=== PATIENT | female | born 1930 | race Caucasian/White ===

== ENCOUNTER 2016-07-31 23:39 | Inpatient (IN) | payer OTHER ==
[~2016-07-31] VITALS: Ht 154.9 cm; Wt 75.3 kg
[~2016-07-31 23:39] MED LIST: ATOR20TA38 PO; CARV6.2579 PO; FERR325C PO; HYDR-3498 PO; HYDR-3670 PO; MELO-110 PO
[2016-07-31 23:58] LABS: URINE BLOOD (Dip) POC Negative (NEGATIVE)
[2016-08-01] VITALS (13 sets, daily range): BP systolic 136–173; BP diastolic 63–78; PULSE 64–86; RESP 18–22; Ht 154.9 cm; Wt 75.3 kg
--- NOTE | 2016-08-01 00:14 | ERA ---
ER Documentation Chief Complaint Date/Time DATE: 08/01/16 TIME: 00:13 Chief Complaint N/V that started this morning. HPI The patient is a 86-year-old female, presenting to the ER because of abdominal pain, nausea, vomiting that began about 10 AM today. She has similar symptoms previously but not with this intensity. She denies fever, chills, neck pain, chest pain, dyspnea. She complains of constipation. She does not smoke or drink Past medical history: Dyslipidemia, anemia, hypertension Past surgical history cholecystectomy, cataract ROS All systems reviewed and are negative except as per history of present illness. Medications Home Meds Active Scripts Hydralazine Hcl* (Hydralazine Hcl*) 10 Mg Tablet, 10 MG PO TID for 30 Days, # 120 TAB Prov:WILTON ARRIAGA 10/24/15 Hydrocodone Bit-Acetaminophen (Hydrocodone Bit-APAP) 5-325MG Tablet, 1 TAB PO Q4H Y for PAIN LEVEL 4-7 for 30 Days, TAB Prov:WILTON ARRIAGA 10/24/15 Carvedilol* (Carvedilol*) 6.25 Mg Tablet, 6.25 MG PO BID for 30 Days, TAB Prov:WILTON ARRIAGA 10/24/15 Meloxicam* (Mobic*) 15 Mg Tablet, 15 MG PO DAILY for 10 Days, #30 TAB Prov:WILTON ARRIAGA 10/24/15 Reported Medications Atorvastatin Calcium* (Atorvastatin Calcium*) 20 Mg Tablet, 20 MG PO QHS, #30 TAB 10/20/15 Ferrous Sulfate (Iron) 325 Mg Capsr, 325 MG PO 10/20/15 Allergies Allergies: Coded Allergies: No Known Allergy (Unverified , 10/19/15) PMhx/Soc History of Surgery: Yes (Cholecystectomy, cataract surgery) Anesthesia Reaction: No Hx Neurological Disorder: No Hx Respiratory Disorders: No Hx Cardiac Disorders: Yes (HTN) Hx Psychiatric Problems: No Hx Miscellaneous Medical Probl: No Hx Alcohol Use: No Hx Substance Use: No Hx Tobacco Use: No Physical Exam Vitals Vital Signs Date Time Temp Pulse Resp B/P Pulse Ox O2 Delivery O2 Flow Rate FiO2 07/31/16 23:40 97.8 82 20 189/84 96 Physical Exam Const: No acute distress. Head: Atraumatic. Eyes: Normal Conjunctiva. ENT: Normal External Ears, Nose and Mouth. Neck: Full range of motion. No meningismus. Resp: Clear to auscultation bilaterally. Cardio: Regular rate and rhythm, no murmurs. Abd: Soft, non distended, normal bowel sounds, diffuse and moderate abdominal tenderness, more tenderness at the left lower quadrant Skin: No petechiae or rashes. Back: No midline or flank tenderness. Ext: No cyanosis, or edema. Neur: Awake and alert. No focal deficit Psych: Normal Mood and Affect. Result Diagram: 08/01/16 0022 08/01/16 0022 Results 24 hrs Laboratory Tests Test 08/01/16 00:00 08/01/16 00:22 Bedside Urine pH (LAB) 7.5 Bedside Urine Protein (LAB) Negative Bedside Urine Glucose (UA) Negative Bedside Urine Ketones (LAB) Negative Bedside Urine Blood Negative Bedside Urine Nitrite (LAB) Negative Bedside Urine Leukocyte Esterase (L Negative White Blood Count 6.110^3/ul Red Blood Count 3.7010^6/ul Hemoglobin 11.2g/dl Hematocrit 31.8% Mean Corpuscular Volume 85.9fl Mean Corpuscular Hemoglobin 30.3pg Mean Corpuscular Hemoglobin Concent 35.2g/dl Red Cell Distribution Width 11.8% Platelet Count 55742^3/UL Mean Platelet Volume 9.7fl Neutrophils % 58.5% Lymphocytes % 33.5% Monocytes % 6.2% Eosinophils % 1.0% Basophils % 0.3% Nucleated Red Blood Cells % 0.0/100WBC Neutrophils # 3.610^3/ul Lymphocytes # 2.010^3/ul Monocytes # 0.410^3/ul Eosinophils # 0.110^3/ul Basophils # 0.010^3/ul Nucleated Red Blood Cells # 0.010^3/ul Sodium Level 120mmol/L Potassium Level 4.5mmol/L Chloride Level 87mmol/L Carbon Dioxide Level 22mmol/L Anion Gap 16 Blood Urea Nitrogen 14mg/dl Creatinine 0.93mg/dl Glucose Level 139mg/dl Calcium Level 9.0mg/dl Total Bilirubin 0.3mg/dl Direct Bilirubin 0.00mg/dl Indirect Bilirubin 0.3mg/dl Aspartate Amino Transf (AST/SGOT) 31IU/L Alanine Aminotransferase (ALT/SGPT) 30IU/L Alkaline Phosphatase 104IU/L Total Protein 7.7g/dl Albumin 4.1g/dl Globulin 3.60g/dl Albumin/Globulin Ratio 1.13 Lipase 89U/L Current Medications Medications (Trade) Dose Ordered Sig/Barbara Route PRN Reason Start Time Stop Time Status Last Admin Dose Admin Morphine Sulfate (morphine) 2 mg ONCE STAT IV 08/01/16 00:21 08/01/16 00:23 DC 08/01/16 00:35 Ondansetron HCl (Zofran Inj) 4 mg ONCE STAT IV 08/01/16 00:21 08/01/16 00:23 DC 08/01/16 00:35 Ondansetron HCl (Zofran Inj) 4 mg ONCE STAT IV 08/01/16 01:38 08/01/16 01:45 DC 08/01/16 01:50 Procedures/MDM [place] [id number] Radiology Main Line: [phone] DIAGNOSTIC IMAGING REPORT Patient: YUKI LAGUNA : 1930 Age: 86 Sex: F MR #: [id number] DOS: 08/01/16 0021 Ordering MD: MICHEL NIEVES MD Location: E/R Room/Bed: PROCEDURE: CT Abdomen and Pelvis without contrast. CLINICAL INDICATION: Abdominal pain. TECHNIQUE: A CT scan of the abdomen and pelvis was performed without intravenous contrast. Coronal and sagittal reformatted images were generated. Images were reviewed on a high-resolution PACS workstation. CTDIvol: 19.34 mGy. DLP: 1034.64 mGy-cm. One or more of the following dose reduction techniques were used: - Automated exposure control. - Adjustment of the mA and/or kV according to patient size. - Use of iterative reconstruction technique. COMPARISON: 10/19/2015 FINDINGS: The lung bases are clear. Evaluation of the abdominal and pelvic viscera is limited by the lack of oral and intravenous contrast. The liver is unremarkable. The patient is status post cholecystectomy. There is extrahepatic biliary ductal dilatation (CBD: 12 mm), probably due to age and absence of the gallbladder. There are calcified granulomas in the spleen. No pancreatic lesion is identified and there is no pancreatic ductal dilatation. The adrenal glands are unremarkable. The kidneys are normal in size. There is no perinephric fat stranding. No hydronephrosis is seen. No urinary stone is identified. The small and large bowel are normal in caliber. There is mild to moderate sigmoid colon diverticulosis. There is wall thickening and pericolonic inflammation along the mid sigmoid colon, consistent with diverticulitis. No associated pericolonic fluid collection or pneumoperitoneum is identified. The appendix is normal. The urinary bladder is unremarkable. The pelvic organs are within normal limits. No lymphadenopathy is identified. There is no ascites. There are mild arterial calcifications. There are calcified injection granulomas in the subcutaneous fat of both buttocks. No suspicious osseous lesion is idenitified. There is grade 1 degenerative L4 and L5 anterolisthesis. IMPRESSION: 1. Diverticulitis along the mid sigmoid colon. No pneumoperitoneum or abscess is identified. 2. Mild to moderate sigmoid colon diverticulosis. 3. Status post cholecystectomy. 4. Mild atherosclerotic arterial calcifications. 5. Grade 1 degenerative L4 and L5 anterolisthesis. RPTAT: HTAR .Andrew Bartlett MD, Date Time Electronically viewed and signed by .Andrew Bartlett MD, MD on 08/01/2016 01:18 .R/ CC: MICHEL NIEVES MD MEDICAL MAKING DECISION: The patient is a 86-year-old female, presenting with acute diverticulitis, acute hyponatremia. She was treated with morphine 2 mg IV for pain, Zofran 4 mg IV 2 for nausea, Cipro IV and Flagyl IV for acute diverticulitis The differential diagnoses considered include but are not limited to cholelithiasis, cholecystitis, cystitis, pancreatitis, hepatitis, gastritis, peptic ulcer disease, gastric ulcer, appendicitis, diverticulitis, cholangitis, choledocholithiasis, partial small bowel obstruction. Consultation: I discussed the patient with the on-call general surgeon Dr. Taylor at 1:50 AM, who was made aware of the lab, the patient treatment and condition. He accepted the consult Departure Diagnosis: Primary Impression: Diverticulitis Additional Impressions: Hyponatremia Anemia Condition: Stable Comments I discussed the findings with the patient. I discussed the patient with her physician Dr. Smith who was made aware of the lab, the treatment, the patient condition. The patient is admitted to telemetry at 2 am MICHEL NIEVES MD August 01, 2016 00:14
[2016-08-01] MEDS ORDERED: ONDANSETRON 4 MG INJ IV STA ×2 (00:21→01:38)
[2016-08-01] MEDS ORDERED: morphine 2 MG INJ IV STA (00:21)
[2016-08-01 01:09] LABS: ADD SCAN DIFF NO
[2016-08-01 01:12] LABS: BASOPHILS % 0.3 % (0.0-2.0); EOSINOPHILS # 0.1 10^3/ul (0.0-0.5); HEMATOCRIT 31.8 % (37.0-47.0); HEMOGLOBIN 11.2 g/dl (12.0-16.0); LYMPHOCYTES % 33.5 % (15.0-51.0); MEAN CORPUSCULAR HEMOGLOBIN 30.3 pg (29.0-33.0); MEAN CORPUSCULAR HGB CONC 35.2 g/dl (32.0-37.0); MEAN CORPUSCULAR VOLUME 85.9 fl (82.0-101.0); MEAN PLATELET VOLUME 9.7 fl (7.4-10.4); MONOCYTE # 0.4 10^3/ul (0.3-0.9); MONOCYTES % 6.2 % (0.0-11.0); NEUTROPHIL # 3.6 10^3/ul (1.6-7.5); NEUTROPHILS % 58.5 % (39.0-77.0); PLATELET COUNT 238 10^3/UL (140-415); RED CELL DISTRIBUTION WIDTH 11.8 % (11.5-14.5); WHITE BLOOD COUNT 6.1 10^3/ul (4.8-10.8)
--- NOTE | 2016-08-01 01:19 | RADRPT ---
PROCEDURE: CT Abdomen and Pelvis without contrast. CLINICAL INDICATION: Abdominal pain. TECHNIQUE: A CT scan of the abdomen and pelvis was performed without intravenous contrast. Montilla l and sagittal reformatted images were generated. Images were reviewed on a high-resolution PACS wor kstation. CTDIvol: 19.34 mGy. DLP: 1034.64 mGy-cm. One or more of the following dose reduction techniques were used: - Automated exposure control. - Adjustment of the mA and/or kV according to patient size. - Use of iterative reconstruction technique. COMPARISON: 10/19/2015 FINDINGS: The lung bases are clear. Evaluation of the abdominal and pelvic viscera is limited by the lack of oral and intravenous contra st. The liver is unremarkable. The patient is status post cholecystectomy. There is extrahepatic biliar y ductal dilatation (CBD: 12 mm), probably due to age and absence of the gallbladder. There are manjula cified granulomas in the spleen. No pancreatic lesion is identified and there is no pancreatic ducta l dilatation. The adrenal glands are unremarkable. The kidneys are normal in size. There is no perinephric fat stranding. No hydronephrosis is seen. No urinary stone is identified. The small and large bowel are normal in caliber. There is mild to moderate sigmoid colon diverticulo sis. There is wall thickening and pericolonic inflammation along the mid sigmoid colon, consistent w ith diverticulitis. No associated pericolonic fluid collection or pneumoperitoneum is identified. T he appendix is normal. The urinary bladder is unremarkable. The pelvic organs are within normal limits. No lymphadenopathy is identified. There is no ascites. There are mild arterial calcifications. There are calcified injection granulomas in the subcutaneous fat of both buttocks. No suspicious osseous lesion is idenitified. There is grade 1 degenerative L4 and L5 anterolisthesis . IMPRESSION: 1. Diverticulitis along the mid sigmoid colon. No pneumoperitoneum or abscess is identified. 2. Mild to moderate sigmoid colon diverticulosis. 3. Status post cholecystectomy. 4. Mild atherosclerotic arterial calcifications. 5. Grade 1 degenerative L4 and L5 anterolisthesis. RPTAT: HTAR .Andrew Bartlett MD, MD Date Time Electronically viewed and signed by .Andrew Bartlett MD, MD on 08/01/2016 01:18 .R/
[2016-08-01 01:42] LABS: ALBUMIN 4.1 g/dl (3.3-4.9)
[2016-08-01 01:43] LABS: ALBUMIN/GLOBULIN RATIO 1.13; BILIRUBIN,INDIRECT 0.3 mg/dl (0-1.1); BILIRUBIN,TOTAL 0.3 mg/dl (0.2-1.3); CREATININE 0.93 mg/dl (0.44-1.00); POTASSIUM 4.5 mmol/L (3.5-5.1); TOTAL PROTEIN 7.7 g/dl (6.1-8.1)
[2016-08-01] MEDS ORDERED: CIPROFLOXACIN 400MG/D5W 200 ML IVPB ONE (02:00)
[2016-08-01] MEDS ORDERED: metroNIDAZOLE 500 MG/NS (PMX) 100 ML IVPB ONE (02:00)
[2016-08-01] MEDS ORDERED: METOCLOPRAMIDE 10 MG INJ IV ONE (02:30)
[2016-08-01] MEDS ORDERED: morphine SULFATE/PF (10 MG/10 ML) INJ IV PRN (03:30)
[2016-08-01] MEDS: SOD CHLORIDE 0.9% 1,000 ML IV SCH ×3 (03:52→23:30)
[2016-08-01] MEDS ORDERED: morphine 2 MG INJ IV PRN (04:00)
[2016-08-01] MEDS: metroNIDAZOLE 500 MG/NS (PMX) 100 ML IVPB SCH ×3 (05:46→21:23)
[2016-08-01 06:08] LABS: ADD SCAN DIFF NO
[2016-08-01 06:37] LABS: BASOPHILS % 0.4 % (0.0-2.0); EOSINOPHILS % 0.2 % (0.0-7.0); HEMATOCRIT 29.8 % (37.0-47.0); HEMOGLOBIN 10.7 g/dl (12.0-16.0); LYMPHOCYTES # 1.6 10^3/ul (0.8-2.9); LYMPHOCYTES % 27.9 % (15.0-51.0); MEAN CORPUSCULAR HEMOGLOBIN 30.4 pg (29.0-33.0); MEAN CORPUSCULAR HGB CONC 35.9 g/dl (32.0-37.0); MEAN CORPUSCULAR VOLUME 84.7 fl (82.0-101.0); MEAN PLATELET VOLUME 9.4 fl (7.4-10.4); MONOCYTE # 0.4 10^3/ul (0.3-0.9); MONOCYTES % 7.5 % (0.0-11.0); NEUTROPHIL # 3.6 10^3/ul (1.6-7.5); NEUTROPHILS % 63.5 % (39.0-77.0); PLATELET COUNT 207 10^3/UL (140-415); RED BLOOD COUNT 3.52 10^6/ul (4.20-5.40); RED CELL DISTRIBUTION WIDTH 11.6 % (11.5-14.5); WHITE BLOOD COUNT 5.6 10^3/ul (4.8-10.8)
[2016-08-01 06:38] LABS: CALCIUM 8.5 mg/dl (8.4-10.2); CREATININE 0.79 mg/dl (0.44-1.00); POTASSIUM 4.3 mmol/L (3.5-5.1)
--- NOTE | 2016-08-01 12:44 | HP ---
Date/Time of Note Date/Time of Note DATE: 08/01/16 TIME: 12:42 Assessment/Plan VTE Prophylaxis VTE Prophylaxis Intervention: other Lines/Catheters [facility] Per[facility] IV Assessment/Plan Chief Complaint/Hosp Course 1) diverticulitis - IV flagyl - surgery consult, await input 2) hypertension - continue home meds - monitor blood pressure 3) hypercholesterolemia - continue meds Problems: HPI/ROS Admit Date/Time Admit Date/Time August 01, 2016 at 01:55 Hx of Present Illness Patient with hypertension and hypercholesterolemia comes in with abdominal pain , nausea and vomiting. Patient was evaluated in the emergency room and found to have diverticulitis on abdominal CT. Patient is admitted and placed on intravenous antibiotics. Surgery was also called by the emergency room and they will evaluate the patient for possibly further treatment as needed. PMH/Family/Social Past Medical History Medical History: high cholesterol, hypertension Past Surgical History Past Surgical Hx: other Social History Smoking Status: Never smoker Exam/Review of Systems Vital Signs Vitals Vital Signs Date Time Temp Pulse Resp B/P Pulse Ox O2 Delivery O2 Flow Rate FiO2 08/01/16 12:04 80 08/01/16 11:44 97.9 18 173/78 97 08/01/16 03:57 Room Air Intake and Output 07/31/16 07/31/16 08/01/16 15:00 23:00 07:00 Output Total 10 ml Balance -10 ml Exam Constitutional: well developed Head: atraumatic, normocephalic Neck: supple Respiratory: clear to auscultation Cardiovascular: regular rate and rhythm Gastrointestinal: tender Extremities: normal pulses Labs Result Diagram: 08/01/16 0550 08/01/16 0550 Medications Medications Current Medications Sodium Chloride (NS) 1,000 ml @ 100 mls/hr Q10H IV Last administered on 03:52; Admin Dose 100 MLS/HR; Start 08/01/16 at 03:30 Ondansetron HCl 4 mg 4 mg Q6H PRN IV NAUSEA AND/OR VOMITING; Start 08/01/16 at 03:30 Metronidazole (Flagyl 500 Mg (Pmx)) 100 ml @ 100 mls/hr Q8 IVPB Last administered on 08/01/16 05:46; Admin Dose 100 MLS/HR; Start 08/01/16 at 06:00 Morphine Sulfate (morphine) 2 mg Q4H PRN IV PAIN Last administered on t 08:00; Admin Dose 2 MG; Start 08/01/16 at 04:00 EDEN LYLES August 01, 2016 12:44
[2016-08-01] MEDS: LORAZEPAM 2 MG INJ IV PRN (13:06)
--- NOTE | 2016-08-01 20:37 | CONS ---
DATE OF ADMISSION: 08/01/2016 DATE OF CONSULTATION: 08/01/2016 TYPE OF CONSULTATION: Surgical. REFERRING PHYSICIAN: Dr. Elmo Nieves CHIEF COMPLAINT: 1. Abdominal pain. 2. BMI of 31. 3. Sigmoid diverticulitis, uncomplicated. HISTORY OF PRESENT ILLNESS: Rhea Dumont is an 86-year-old female with multiple comorbidities who p resents with abdominal pain on the left abdomen associated with nausea and vomiting since yesterday. She denies any fevers, chills, chest pain; however, had some shortness of breath. No cough. No s eizure. No blood per mouth or rectum. No dysuria. No trauma or sick contacts. No previous histor y of the same. In the emergency room, she is found to be afebrile with stable and normal vitals, except elevated bl ood pressure. CBC is mostly normal except anemia. Chemistry has some abnormalities of sodium with hyponatremia. CT scan of the abdomen shows sigmoid diverticulitis without complication. The patien t is admitted, placed on antibiotics, and surgical consult was obtained for further evaluation and t reatment. PAST MEDICAL HISTORY: 1. BMI of 31. 2. Diverticulosis with acute diverticulitis. 3. Anemia. 4. Significant hyponatremia. 5. Dyslipidemia. 6. Hypertension. PAST SURGICAL HISTORY: 1. Cataracts. 2. Cholecystectomy. ALLERGIES: PER MEDICAL RECORD. SOCIAL HISTORY: No current alcohol, drugs, or tobacco. FAMILY HISTORY: Noncontributory. REVIEW OF SYSTEMS: A 12-point review of systems negative unless addressed in the HPI. PHYSICAL EXAMINATION: VITAL SIGNS: Temperature is 98.8, pulse 65, blood pressure 167/67, satting 98% on 2 liters. GENERAL: Obese. No acute distress, comfortable, pleasant. HEENT: Pupils equal, reactive. No scleral icterus. Mucous membranes are moist. NECK: Supple. No JVD. PULMONARY: Normal respiratory effort. No wheezing. CARDIAC: S1, S2 present. ABDOMEN: Soft, obese, currently nontender. No rebound, no guarding, not rigid. EXTREMITIES: No edema. VASCULAR: Cap refill less than 2 seconds. NEUROLOGIC: Alert, oriented. Moves all 4 extremities grossly. LABORATORY AND RADIOGRAPHIC: As per chart and HPI. ASSESSMENT AND PLAN: Rhea Dumont is an 86-year-old female with multiple significant comorbidities. 1. Abdominal pain with CT findings that are suggestive of acute noncomplicated diverticulitis. Con tinue antibiotics and supportive care. No surgical intervention required at this time. 2. Dyspnea, probably secondary to abdominal distention; however, need to rule out other sources. W ill defer to primary for further workup and treatment. However, she is saturating well. 3. Morbid obesity. Encourage nutritional optimization and exercise to lose weight and improve her overall health status. 4. Anemia without evidence of acute blood loss. Continue monitoring and she will eventually benefi t from gastrointestinal workup to rule out gastrointestinal sources. In the meantime, will defer to primary team for further workup. 5. Hypertension. Continue nutrition and medication control and encourage weight loss. 6. Significant hyponatremia. Please correct with judicious fluid management. Thank you very much for consulting me in this patient's care. Dictated By: DANIELLA MCNULTY/NTS Conf#: [id number] DID#: [id number] CC: EDEN LYLES MD; ELMO NIEVES MD;*EndCC*
[2016-08-01] MEDS: ATORVASTATIN 20 MG TAB PO SCH (21:22)
[2016-08-01] MEDS: ENOXAPARIN 30 MG/0.3 ML SYG SC SCH (21:25)
[2016-08-02] VITALS (11 sets, daily range): BP systolic 125–144; BP diastolic 52–78; PULSE 59–69; RESP 18–20
[2016-08-02] MEDS: metroNIDAZOLE 500 MG/NS (PMX) 100 ML IVPB SCH ×3 (05:32→23:19)
[2016-08-02 06:47] LABS: ADD SCAN DIFF NO
[2016-08-02 06:51] LABS: BASOPHILS % 0.4 % (0.0-2.0); EOSINOPHILS # 0.1 10^3/ul (0.0-0.5); EOSINOPHILS % 2.2 % (0.0-7.0); HEMOGLOBIN 10.4 g/dl (12.0-16.0); LYMPHOCYTES % 37.4 % (15.0-51.0); MEAN CORPUSCULAR HGB CONC 34.7 g/dl (32.0-37.0); MEAN CORPUSCULAR VOLUME 86.5 fl (82.0-101.0); MEAN PLATELET VOLUME 9.1 fl (7.4-10.4); MONOCYTE # 0.7 10^3/ul (0.3-0.9); MONOCYTES % 12.5 % (0.0-11.0); NEUTROPHIL # 2.5 10^3/ul (1.6-7.5); NEUTROPHILS % 47.3 % (39.0-77.0); PLATELET COUNT 200 10^3/UL (140-415); RED BLOOD COUNT 3.47 10^6/ul (4.20-5.40); RED CELL DISTRIBUTION WIDTH 12.2 % (11.5-14.5); WHITE BLOOD COUNT 5.4 10^3/ul (4.8-10.8)
[2016-08-02 07:18] LABS: POTASSIUM 4.1 mmol/L (3.5-5.1)
[2016-08-02 07:20] LABS: CREATININE 0.82 mg/dl (0.44-1.00)
[2016-08-02 07:21] LABS: CALCIUM 8.6 mg/dl (8.4-10.2)
--- NOTE | 2016-08-02 08:57 | PN ---
Date/Time of Note Date/Time of Note DATE: 08/02/16 TIME: 08:55 Assessment/Plan Lines/Catheters IV [facility] (from [facility]): Peripheral IV Assessment/Plan Chief Complaint/Hosp Course 1. Abdominal pain with CT findings that are suggestive of acute noncomplicated diverticulitis. Continue antibiotics and supportive care. No surgical intervention required at this time. 2. Dyspnea, probably secondary to abdominal distention. Improved 3. Morbid obesity. Encourage nutritional optimization and exercise to lose weight and improve her overall health status. 4. Anemia without evidence of acute blood loss. -eventual w/u 5. Hypertension. Continue nutrition and medication control and encourage weight loss. 6. Significant hyponatremia. Please correct with judicious fluid management. Improving Thank you Problems: Subjective 24 Hr Interval Summary Min LLQ pain. No f/c. No cp/sob. No cough. No sz. No rash. No dysuria. No visual or neuro changes. Exam/Review of Systems Vital Signs Vitals Vital Signs Date Time Temp Pulse Resp B/P Pulse Ox O2 Delivery O2 Flow Rate FiO2 08/10/16 07:16 98.3 76 18 130/60 96 08/08/16 20:05 Room Air Intake and Output 08/10/16 08/10/16 08/11/16 15:00 23:00 07:00 Intake Total 100 ml 1220 ml Balance 100 ml 1220 ml Exam Free Text/Dictation GENERAL: Obese. No acute distress, comfortable, pleasant. HEENT: Pupils equal, reactive. No scleral icterus. Mucous membranes are moist. NECK: Supple. No JVD. PULMONARY: Normal respiratory effort. No wheezing. CARDIAC: S1, S2 present. ABDOMEN: Soft, obese, nontender. No rebound, no guarding, not rigid. EXTREMITIES: No edema. VASCULAR: Cap refill less than 2 seconds. NEUROLOGIC: Alert, oriented. Moves all 4 extremities grossly. Results Result Diagram: 08/09/16 0515 08/10/16 0525 DANIELLA DURAN MD August 02, 2016 08:57
[2016-08-02] MEDS: MELOXICAM 15 MG TAB PO SCH (09:22)
[2016-08-02] MEDS: ENOXAPARIN 30 MG/0.3 ML SYG SC SCH (09:28)
--- NOTE | 2016-08-02 10:15 | PN ---
Date/Time of Note Date/Time of Note DATE: 08/02/16 TIME: 10:14 Assessment/Plan VTE Prophylaxis VTE Prophylaxis Intervention: other Lines/Catheters IV Catheter Type (from [facility]): Peripheral IV Assessment/Plan Chief Complaint/Hosp Course 1) diverticulitis - IV flagyl - appreciate surgery input 2) hypertension - continue home meds - monitor blood pressure 3) hypercholesterolemia - continue meds Problems: Subjective 24 Hr Interval Summary Free Text/Dictation Patient denies abdominal pain. Exam/Review of Systems Vital Signs Vitals Vital Signs Date Time Temp Pulse Resp B/P Pulse Ox O2 Delivery O2 Flow Rate FiO2 08/02/16 08:06 98.0 62 18 141/63 90 08/01/16 08:00 Nasal Cannula 2.0 Intake and Output 08/01/16 08/01/16 08/02/16 15:00 23:00 07:00 Intake Total 1950 ml 550 ml Balance 1950 ml 550 ml Exam Constitutional: well developed Head: atraumatic, normocephalic Neck: supple Respiratory: clear to auscultation Cardiovascular: regular rate and rhythm Gastrointestinal: non-tender, soft Extremities: normal pulses Results Result Diagram: 08/02/16 0625 08/02/16 0625 Results 24 hrs Laboratory Tests Test 08/02/16 06:25 White Blood Count 5.4 Red Blood Count 3.47 L Hemoglobin 10.4 L Hematocrit 30.0 L Mean Corpuscular Volume 86.5 Mean Corpuscular Hemoglobin 30.0 Mean Corpuscular Hemoglobin Concent 34.7 Red Cell Distribution Width 12.2 Platelet Count 200 Mean Platelet Volume 9.1 Neutrophils % 47.3 Lymphocytes % 37.4 Monocytes % 12.5 H Eosinophils % 2.2 Basophils % 0.4 Nucleated Red Blood Cells % 0.0 Neutrophils # 2.5 Lymphocytes # 2.0 Monocytes # 0.7 Eosinophils # 0.1 Basophils # 0.0 Nucleated Red Blood Cells # 0.0 Sodium Level 133 L Potassium Level 4.1 Chloride Level 108 # Carbon Dioxide Level 24 Anion Gap 5 #L Blood Urea Nitrogen 9 Creatinine 0.82 Glucose Level 101 # Calcium Level 8.6 Medications Medications Current Medications Sodium Chloride (NS) 1,000 ml @ 100 mls/hr Q10H IV Last administered on t 16:15; Admin Dose 100 MLS/HR; Start 5/28/17 at 03:30 Ondansetron HCl 4 mg 4 mg Q6H PRN IV NAUSEA AND/OR VOMITING; Start 08/01/16 at 03:30 Metronidazole (Flagyl 500 Mg (Pmx)) 100 ml @ 100 mls/hr Q8 IVPB Last administered on 08/02/16 05:32; Admin Dose 100 MLS/HR; Start 08/01/16 at 06:00 Morphine Sulfate (morphine) 2 mg Q4H PRN IV PAIN Last administered on 08:00; Admin Dose 2 MG; Start 08/01/16 at 04:00 Atorvastatin Calcium (Lipitor) 20 mg QHS PO Last administered on 08/01/16 21: 22; Admin Dose 20 MG; Start 08/01/16 at 21:00 Carvedilol (Coreg) 6.25 mg BID PO Last administered on 08/02/16 09:21; Admin Dose 6.25 MG; Start 08/01/16 at 21:00 Hydralazine HCl (Apresoline) 10 mg TID PO Last administered on 08/02/16 09:20 ; Admin Dose 10 MG; Start 08/01/16 at 13:00 Acetaminophen/ Hydrocodone Bitart (Catarina (5/325)) 1 tab Q4H PRN PO PAIN LEVEL 4 -7; Start 08/01/16 at 13:00 Meloxicam (Mobic) 15 mg DAILY PO Last administered on 08/02/16 09:22; Admin Dose 15 MG; Start 08/02/16 at 09:00 Enoxaparin Sodium (Lovenox) 30 mg BID SC Last administered on 08/02/16 09:28; Admin Dose 30 MG; Start 08/01/16 at 21:00 Lorazepam (Ativan) 1 mg Q6H PRN IV anxiety Last administered on 08/01/16 13:06 ; Admin Dose 1 MG; Start 08/01/16 at 13:00 EDEN LYLES August 02, 2016 10:15
[2016-08-02] MEDS: SOD CHLORIDE 0.9% 1,000 ML IV SCH ×2 (10:47→20:13)
--- NOTE | 2016-08-02 10:56 | RADRPT ---
PROCEDURE: XR Chest. CLINICAL INDICATION: Shortness of breath TECHNIQUE: Single AP view of the chest were obtained COMPARISON: 10/19/2015 FINDINGS: The heart and mediastinum are within normal limits. The pulmonary vasculature are unremarkable. The aorta demonstrates atherosclerotic calcifications. There is no lung consolidation, pleural effusio n or pneumothorax. Degenerative changes are seen within the thoracic spine. There is no acute osse ous abnormality. IMPRESSION: No acute disease. RPTAT: AA .Harrison Mccrary MD, MD Date Time Electronically viewed and signed by .Harrison Mccrary MD, MD on 08/02/2016 10:56 .J/
[2016-08-02] MEDS: ATORVASTATIN 20 MG TAB PO SCH (20:40)
[2016-08-03] VITALS (12 sets, daily range): BP systolic 129–174; BP diastolic 60–77; PULSE 54–78; RESP 16–20
[2016-08-03] MEDS: SOD CHLORIDE 0.9% 1,000 ML IV SCH ×2 (05:30→11:05)
[2016-08-03] MEDS: metroNIDAZOLE 500 MG/NS (PMX) 100 ML IVPB SCH ×3 (06:20→22:16)
[2016-08-03] MEDS: MELOXICAM 15 MG TAB PO SCH (08:45)
[2016-08-03] MEDS: ENOXAPARIN 30 MG/0.3 ML SYG SC SCH (09:21)
--- NOTE | 2016-08-03 19:30 | PN ---
Date/Time of Note Date/Time of Note DATE: 08/03/16 TIME: 19:28 Assessment/Plan VTE Prophylaxis VTE Prophylaxis Intervention: SCD's Lines/Catheters IV Catheter Type (from Nrs): Peripheral IV Assessment/Plan Chief Complaint/Hosp Course Patient's complaint of left lower quadrant tenderness. Denies any nausea vomiting. Tolerates clear liquid diet well. Problems: Assessment/Plan -Acute non-complicated diverticulitis. Continue antibiotics. Dr. Taylor is following in general surgery consultation. Advance diet per surgery. -Hypo-natremia, improved with IV fluids. -Hypertension, continue current Coreg and hydralazine. -Hyperlipidemia, continue Lipitor. -Obesity with BMI of 31.4 Further recommendations based on clinical course. Plan of care discussed with Dr. Segura. Exam/Review of Systems Vital Signs Vitals Vital Signs Date Time Temp Pulse Resp B/P Pulse Ox O2 Delivery O2 Flow Rate FiO2 08/03/16 16:36 59 08/03/16 15:09 97.8 16 160/74 98 08/01/16 08:00 Nasal Cannula 2.0 Intake and Output 08/02/16 08/02/16 08/03/16 15:00 23:00 07:00 Intake Total 100 ml 1600 ml 580 ml Balance 100 ml 1600 ml 580 ml Exam Constitutional: alert, oriented Head: normocephalic Neck: supple Respiratory: clear to auscultation, normal air movement Cardiovascular: nl pulses, regular rate and rhythm Gastrointestinal: soft, tender (Left lower quadrant) Extremities: normal pulses Neurological: WARES SORTER II-XII intact Results Result Diagram: 08/02/1625 08/02/16624 Medications Medications Current Medications Sodium Chloride (NS) 1,000 ml @ 100 mls/hr Q10H IV Last administered on 11:05; Admin Dose 100 MLS/HR; Start 08/01/16 at 03:30 Ondansetron HCl 4 mg 4 mg Q6H PRN IV NAUSEA AND/OR VOMITING; Start 08/01/16 at 03:30 Metronidazole (Flagyl 500 Mg (Pmx)) 100 ml @ 100 mls/hr Q8 IVPB Last administered on 08/03/16 13:16; Admin Dose 100 MLS/HR; Start 08/01/16 at 06:00 Morphine Sulfate (morphine) 2 mg Q4H PRN IV PAIN Last administered on 08:00; Admin Dose 2 MG; Start 08/01/16 at 04:00 Atorvastatin Calcium (Lipitor) 20 mg QHS PO Last administered on 08/02/16 20: 40; Admin Dose 20 MG; Start 08/01/16 at 21:00 Carvedilol (Coreg) 6.25 mg BID PO Last administered on 08/03/16 08:44; Admin Dose 6.25 MG; Start 08/01/16 at 21:00 Hydralazine HCl (Apresoline) 10 mg TID PO Last administered on 08/03/16 13:16 ; Admin Dose 10 MG; Start 08/01/16 at 13:00 Acetaminophen/ Hydrocodone Bitart ([place] (5/325)) 1 tab Q4H PRN PO PAIN LEVEL 4 -7; Start 08/01/16 at 13:00 Meloxicam (Mobic) 15 mg DAILY PO Last administered on 08/03/16 08:45; Admin Dose 15 MG; Start 08/02/16 at 09:00 Lorazepam (Ativan) 1 mg Q6H PRN IV anxiety Last administered on 08/01/16 13:06 ; Admin Dose 1 MG; Start 08/01/16 at 13:00 Enoxaparin Sodium (Lovenox) 30 mg DAILY SC Last administered on 08/03/16 09:21 ; Admin Dose 30 MG; Start 08/03/16 at 09:00 WILTON ARRIAGA August 03, 2016 19:30
[2016-08-03] MEDS: ATORVASTATIN 20 MG TAB PO SCH (20:42)
[2016-08-03] MEDS: CIPROFLOXACIN 200 MG/D5W IVPB 100 ML IVPB SCH (21:47)
[2016-08-04] VITALS (11 sets, daily range): BP systolic 130–180; BP diastolic 55–76; PULSE 60–92; RESP 16–20
[2016-08-04] MEDS: metroNIDAZOLE 500 MG/NS (PMX) 100 ML IVPB SCH ×3 (06:10→23:15)
[2016-08-04] MEDS: SOD CHLORIDE 0.9% 1,000 ML IV SCH (06:13)
[2016-08-04 07:32] LABS: ADD SCAN DIFF NO
[2016-08-04 07:44] LABS: BASOPHILS % 0.6 % (0.0-2.0); EOSINOPHILS # 0.2 10^3/ul (0.0-0.5); EOSINOPHILS % 3.5 % (0.0-7.0); HEMATOCRIT 31.2 % (37.0-47.0); HEMOGLOBIN 10.4 g/dl (12.0-16.0); LYMPHOCYTES # 2.3 10^3/ul (0.8-2.9); LYMPHOCYTES % 47.6 % (15.0-51.0); MEAN CORPUSCULAR HEMOGLOBIN 30.1 pg (29.0-33.0); MEAN CORPUSCULAR HGB CONC 33.3 g/dl (32.0-37.0); MEAN CORPUSCULAR VOLUME 90.4 fl (82.0-101.0); MEAN PLATELET VOLUME 9.4 fl (7.4-10.4); MONOCYTE # 0.6 10^3/ul (0.3-0.9); MONOCYTES % 11.9 % (0.0-11.0); NEUTROPHIL # 1.8 10^3/ul (1.6-7.5); NEUTROPHILS % 36.4 % (39.0-77.0); PLATELET COUNT 193 10^3/UL (140-415); RED BLOOD COUNT 3.45 10^6/ul (4.20-5.40); WHITE BLOOD COUNT 4.8 10^3/ul (4.8-10.8)
[2016-08-04 08:02] LABS: CREATININE 0.65 mg/dl (0.44-1.00)
[2016-08-04 08:03] LABS: CALCIUM 8.3 mg/dl (8.4-10.2)
[2016-08-04] MEDS: MELOXICAM 15 MG TAB PO SCH (08:06)
[2016-08-04] MEDS: CIPROFLOXACIN 200 MG/D5W IVPB 100 ML IVPB SCH ×2 (08:06→21:52)
[2016-08-04] MEDS: ENOXAPARIN 30 MG/0.3 ML SYG SC SCH (08:23)
[2016-08-04] MEDS: hydrALAzine 20 MG INJ IV PRN (16:44)
[2016-08-04] MEDS: ONDANSETRON 4 MG INJ IV PRN (17:37)
--- NOTE | 2016-08-04 17:52 | PN ---
Date/Time of Note Date/Time of Note DATE: 08/04/16 TIME: 17:50 Assessment/Plan VTE Prophylaxis VTE Prophylaxis Intervention: SCD's Lines/Catheters IV Catheter Type (from [facility]): Peripheral IV Urinary Cath still in place: No Assessment/Plan Chief Complaint/Hosp Course Patient's complaint of left lower quadrant tenderness. Denies any nausea vomiting. Patient tolerates full liquid diet well advanced to mechanical soft. Assessment/Plan -Acute non-complicated diverticulitis. Continue antibiotics. Dr. Taylor is following in general surgery consultation. -Hypo-natremia, resolved. -Hypertension, continue current Coreg and hydralazine. -Hyperlipidemia, continue Lipitor. -Obesity with BMI of 31.4 Further recommendations based on clinical course. Plan of care discussed with Dr. Segura. Problems: Exam/Review of Systems Vital Signs Vitals Vital Signs Date Time Temp Pulse Resp B/P Pulse Ox O2 Delivery O2 Flow Rate FiO2 08/04/16 17:00 97.8 89 20 130/55 98 Room Air 08/01/16 08:00 2.0 Intake and Output 08/03/16 08/03/16 08/04/16 15:00 23:00 07:00 Intake Total 200 ml 2080 ml 900 ml Output Total 700 ml 1600 ml Balance 200 ml 1380 ml -700 ml Exam Constitutional: alert, oriented Head: normocephalic Neck: supple Respiratory: clear to auscultation, normal air movement Cardiovascular: nl pulses, regular rate and rhythm Gastrointestinal: soft, tender (Left lower quadrant) Extremities: normal pulses Neurological: PH[employer]GR[employer]IPMENT INSPECTOR II-XII intact Results Result Diagram: 08/04/16 0645 08/04/16 0645 Results 24 hrs Laboratory Tests Test 08/04/16 06:45 White Blood Count 4.8 Red Blood Count 3.45 L Hemoglobin 10.4 L Hematocrit 31.2 L Mean Corpuscular Volume 90.4 Mean Corpuscular Hemoglobin 30.1 Mean Corpuscular Hemoglobin Concent 33.3 Red Cell Distribution Width 13.0 Platelet Count 193 Mean Platelet Volume 9.4 Neutrophils % 36.4 L Lymphocytes % 47.6 Monocytes % 11.9 H Eosinophils % 3.5 Basophils % 0.6 Nucleated Red Blood Cells % 0.0 Neutrophils # 1.8 Lymphocytes # 2.3 Monocytes # 0.6 Eosinophils # 0.2 Basophils # 0.0 Nucleated Red Blood Cells # 0.0 Sodium Level 139 Potassium Level 4.0 Chloride Level 115 H Carbon Dioxide Level 24 Anion Gap 4 L Blood Urea Nitrogen 4 L Creatinine 0.65 Glucose Level 91 Calcium Level 8.3 L Medications Medications Current Medications Sodium Chloride (NS) 1,000 ml @ 60 mls/hr [id number] IV Last administered on 08/04 06:13; Admin Dose 60 MLS/HR; Start 08/01/16 at 03:30 Ondansetron HCl 4 mg 4 mg Q6H PRN IV NAUSEA AND/OR VOMITING Last administered on 08/04/16 17:37; Admin Dose 4 MG; Start 08/01/16 at 03:30 Metronidazole (Flagyl 500 Mg (Pmx)) 100 ml @ 100 mls/hr Q8 IVPB Last administered on 08/04/16 13:03; Admin Dose 100 MLS/HR; Start 08/01/16 at 06:00 Morphine Sulfate (morphine) 2 mg Q4H PRN IV PAIN Last administered on 08:00; Admin Dose 2 MG; Start 08/01/16 at 04:00 Atorvastatin Calcium (Lipitor) 20 mg QHS PO Last administered on 08/03/16 20: 42; Admin Dose 20 MG; Start 08/01/16 at 21:00 Carvedilol (Coreg) 6.25 mg BID PO Last administered on 08/04/16 08:06; Admin Dose 6.25 MG; Start 08/01/16 at 21:00 Hydralazine HCl (Apresoline) 10 mg TID PO Last administered on 08/04/16 13:04 ; Admin Dose 10 MG; Start 08/01/16 at 13:00 Acetaminophen/ Hydrocodone Bitart ([place] (5/325)) 1 tab Q4H PRN PO PAIN LEVEL 4 -7; Start 08/01/16 at 13:00 Meloxicam (Mobic) 15 mg DAILY PO Last administered on 08/04/16 08:06; Admin Dose 15 MG; Start 08/02/16 at 09:00 Lorazepam (Ativan) 1 mg Q6H PRN IV anxiety Last administered on 08/01/16 13:06 ; Admin Dose 1 MG; Start 08/01/16 at 13:00 Enoxaparin Sodium 30 mg 30 mg DAILY SC Last administered on 08/04/16 08:23; Admin Dose 30 MG; Start 08/03/16 at 09:00 Ciprofloxacin/ Dextrose (Cipro Ivpb) 100 ml @ 100 mls/hr Q12 IVPB Last administered on 08/04/16 08:06; Admin Dose 100 MLS/HR; Start 08/03/16 at 21:00 Hydralazine HCl (Apresoline) 10 mg Q6H PRN IV SBP > 170 Last administered on 16:44; Admin Dose 10 MG; Start 08/04/16 at 17:00 WILTON ARRIAGA August 04, 2016 17:52
[2016-08-04] MEDS: ATORVASTATIN 20 MG TAB PO SCH (21:52)
[2016-08-04] MEDS: HYDROCODONE/APAP (5/325) TAB PO PRN (23:01)
[2016-08-05] MEDS: LORAZEPAM 2 MG INJ IV PRN (02:03)
--- NOTE | 2016-08-05 02:38 | PN ---
Date/Time of Note Date/Time of Note DATE: 08/03/16 TIME: 12:31 Assessment/Plan Lines/Catheters IV Catheter Type (from [facility]): Saline Lock Reinoso in Place (from Nrs): No Assessment/Plan Chief Complaint/Hosp Course 1. Abdominal pain with CT findings that are suggestive of acute noncomplicated diverticulitis. -antibiotics -supportive care -diet as tolerated -judicious fluids -no surgical intervention required at this time. 2. Dyspnea, improved 3. Obesity. Encourage nutritional optimization and exercise to lose weight and improve her overall health status. 4. Anemia without evidence of acute blood loss. -monitor -eventual gastrointestinal workup 5. Hypertension. Continue nutrition and medication control and encourage weight loss. 6. Significant hyponatremia. Corrected Thank you Late entry 08/03 Problems: Subjective 24 Hr Interval Summary Min LLQ pain. No f/c. No cp/sob. No cough. No sz. No rash. No dysuria. No visual or neuro changes. Exam/Review of Systems Vital Signs Vitals Vital Signs Date Time Temp Pulse Resp B/P Pulse Ox O2 Delivery O2 Flow Rate FiO2 08/04/16 20:05 98.3 89 18 144/66 98 08/04/16 17:00 Room Air 08/01/16 08:00 2.0 Intake and Output 08/04/16 08/04/16 08/05/16 15:00 23:00 07:00 Intake Total 100 ml 1020 ml Balance 100 ml 1020 ml Exam Free Text/Dictation GENERAL: Obese. No acute distress, comfortable, pleasant. HEENT: Pupils equal, reactive. No scleral icterus. Mucous membranes are moist. NECK: Supple. No JVD. PULMONARY: Normal respiratory effort. No wheezing. CARDIAC: S1, S2 present. ABDOMEN: Soft, obese, nontender. No rebound, no guarding, not rigid. EXTREMITIES: No edema. VASCULAR: Cap refill less than 2 seconds. NEUROLOGIC: Alert, oriented. Moves all 4 extremities grossly. Results Result Diagram: 08/04/16 0645 08/04/16 0645 DANIELLA DURAN MD Aug 05, 2016 02:38
--- NOTE | 2016-08-05 02:40 | PN ---
Date/Time of Note Date/Time of Note DATE: 08/04/16 TIME: 22:38 Assessment/Plan Lines/Catheters IV Catheter Type (from [facility]): Saline Lock Reinoso in Place (from [facility]): No Assessment/Plan Chief Complaint/Hosp Course 1. Abdominal pain with CT findings that are suggestive of acute noncomplicated diverticulitis. No surgical intervention required at this time. -antibiotics -supportive care -diet as tolerated -judicious fluids -no surgical intervention required at this time. 2. Dyspnea, improved 3. Obesity. Encourage nutritional optimization and exercise to lose weight and improve her overall health status. 4. Anemia without evidence of acute blood loss. -monitor -eventual gastrointestinal workup 5. Hypertension. Continue nutrition and medication control and encourage weight loss. 6. Significant hyponatremia. Corrected Thank you Late entry 08/04 Problems: Subjective 24 Hr Interval Summary Min LLQ pain. No f/c. No cp/sob. No cough. No sz. No rash. No dysuria. No visual or neuro changes. Exam/Review of Systems Vital Signs Vitals Vital Signs Date Time Temp Pulse Resp B/P Pulse Ox O2 Delivery O2 Flow Rate FiO2 08/04/16 20:05 98.3 89 18 144/66 98 08/04/16 17:00 Room Air 08/01/16 08:00 2.0 Intake and Output 08/04/16 08/04/16 08/05/16 15:00 23:00 07:00 Intake Total 100 ml 1020 ml Balance 100 ml 1020 ml Exam Free Text/Dictation GENERAL: Obese. No acute distress, comfortable, pleasant. HEENT: Pupils equal, reactive. No scleral icterus. Mucous membranes are moist. NECK: Supple. No JVD. PULMONARY: Normal respiratory effort. No wheezing. CARDIAC: S1, S2 present. ABDOMEN: Soft, obese, nontender. No rebound, no guarding, not rigid. EXTREMITIES: No edema. VASCULAR: Cap refill less than 2 seconds. NEUROLOGIC: Alert, oriented. Moves all 4 extremities grossly. Results Result Diagram: 08/04/16 0645 08/04/16 0645 DANIELLA DURAN MD Aug 05, 2016 02:39
[2016-08-05] MEDS: metroNIDAZOLE 500 MG/NS (PMX) 100 ML IVPB SCH ×3 (05:29→22:12)
[2016-08-05 08:04] VITALS: BP 140/63; RESP 18
[2016-08-05] MEDS: MELOXICAM 15 MG TAB PO SCH (09:03)
[2016-08-05] MEDS: CIPROFLOXACIN 200 MG/D5W IVPB 100 ML IVPB SCH ×2 (09:03→20:30)
[2016-08-05] MEDS: ENOXAPARIN 30 MG/0.3 ML SYG SC SCH (09:10)
[2016-08-05 09:48] LABS: ADD SCAN DIFF NO
[2016-08-05 10:14] LABS: CALCIUM 8.6 mg/dl (8.4-10.2); CREATININE 0.75 mg/dl (0.44-1.00); POTASSIUM 4.2 mmol/L (3.5-5.1)
[2016-08-05 10:18] LABS: BASOPHILS % 0.6 % (0.0-2.0); EOSINOPHILS # 0.2 10^3/ul (0.0-0.5); EOSINOPHILS % 2.9 % (0.0-7.0); HEMATOCRIT 33.3 % (37.0-47.0); HEMOGLOBIN 11.2 g/dl (12.0-16.0); LYMPHOCYTES # 2.9 10^3/ul (0.8-2.9); LYMPHOCYTES % 45.6 % (15.0-51.0); MEAN CORPUSCULAR HEMOGLOBIN 30.8 pg (29.0-33.0); MEAN CORPUSCULAR HGB CONC 33.6 g/dl (32.0-37.0); MEAN CORPUSCULAR VOLUME 91.5 fl (82.0-101.0); MONOCYTE # 0.6 10^3/ul (0.3-0.9); MONOCYTES % 9.1 % (0.0-11.0); NEUTROPHIL # 2.7 10^3/ul (1.6-7.5); NEUTROPHILS % 41.3 % (39.0-77.0); PLATELET COUNT 231 10^3/UL (140-415); RED BLOOD COUNT 3.64 10^6/ul (4.20-5.40); RED CELL DISTRIBUTION WIDTH 13.1 % (11.5-14.5); WHITE BLOOD COUNT 6.5 10^3/ul (4.8-10.8)
--- NOTE | 2016-08-05 12:32 | PN ---
Date/Time of Note Date/Time of Note DATE: 08/05/16 TIME: 12:28 Assessment/Plan VTE Prophylaxis VTE Prophylaxis Intervention: SCD's Lines/Catheters IV Catheter Type (from Nrs): Saline Lock Urinary Cath still in place: No Assessment/Plan Assessment/Plan -Acute non-complicated diverticulitis. Continue antibiotics. Dr. Taylor is following in general surgery consultation. -Hypo-natremia, resolved. -Hypertension, continue current Coreg and hydralazine. -Hyperlipidemia, continue Lipitor. -Obesity with BMI of 31.4 Further recommendations based on clinical course. Plan of care discussed with Dr. Segura. Subjective 24 Hr Interval Summary Free Text/Dictation c/o left lower quadrant tenderness at times- better now . Denies any nausea vomiting. Patient tolerates mechanical soft.dw staff- no new issues reported. Gastrointestinal: pain Genitourinary: no complaints Musculoskeletal: no complaints Skin: no complaints Exam/Review of Systems Vital Signs Vitals Vital Signs Date Time Temp Pulse Resp B/P Pulse Ox O2 Delivery O2 Flow Rate FiO2 08/05/16 08:04 98.4 74 18 140/63 98 08/04/16 17:00 Room Air 08/01/16 08:00 2.0 Intake and Output 08/04/16 08/04/16 08/05/16 15:00 23:00 07:00 Intake Total 100 ml 1120 ml 200 ml Balance 100 ml 1120 ml 200 ml Exam Constitutional: alert, well developed Respiratory: clear to auscultation, normal air movement Cardiovascular: nl pulses, regular rate and rhythm Gastrointestinal: soft, tender Musculoskeletal: nl extremities to inspection Extremities: normal pulses Neurological: nl mental status Lymph: nontender Results Result Diagram: 08/05/16 0920 08/05/16 0920 Results 24 hrs Laboratory Tests Test 08/05/16 09:20 White Blood Count 6.5 # Red Blood Count 3.64 L Hemoglobin 11.2 L Hematocrit 33.3 L Mean Corpuscular Volume 91.5 Mean Corpuscular Hemoglobin 30.8 Mean Corpuscular Hemoglobin Concent 33.6 Red Cell Distribution Width 13.1 Platelet Count 231 Mean Platelet Volume 9.0 Neutrophils % 41.3 Lymphocytes % 45.6 Monocytes % 9.1 Eosinophils % 2.9 Basophils % 0.6 Nucleated Red Blood Cells % 0.0 Neutrophils # 2.7 Lymphocytes # 2.9 Monocytes # 0.6 Eosinophils # 0.2 Basophils # 0.0 Nucleated Red Blood Cells # 0.0 Sodium Level 141 Potassium Level 4.2 Chloride Level 112 H Carbon Dioxide Level 28 Anion Gap 5 L Blood Urea Nitrogen 6 L Creatinine 0.75 Glucose Level 104 Calcium Level 8.6 Medications Medications Current Medications Ondansetron HCl 4 mg 4 mg Q6H PRN IV NAUSEA AND/OR VOMITING Last administered on 08/04/16 17:37; Admin Dose 4 MG; Start 08/01/16 at 03:30 Metronidazole (Flagyl 500 Mg (Pmx)) 100 ml @ 100 mls/hr Q8 IVPB Last administered on 08/05/16 05:29; Admin Dose 100 MLS/HR; Start 08/01/16 at 06:00 Morphine Sulfate (morphine) 2 mg Q4H PRN IV PAIN Last administered on 08:00; Admin Dose 2 MG; Start 08/01/16 at 04:00 Atorvastatin Calcium (Lipitor) 20 mg QHS PO Last administered on 08/04/16 21: 52; Admin Dose 20 MG; Start 08/01/16 at 21:00 Carvedilol (Coreg) 6.25 mg BID PO Last administered on 08/05/16 09:04; Admin Dose 6.25 MG; Start 08/01/16 at 21:00 Hydralazine HCl (Apresoline) 10 mg TID PO Last administered on 08/05/16 09:04; Admin Dose 10 MG; Start 08/01/16 at 13:00 Acetaminophen/ Hydrocodone Bitart ([place] (5/325)) 1 tab Q4H PRN PO PAIN LEVEL 4 -7 Last administered on 08/04/16 23:01; Admin Dose 1 TAB; Start 08/01/16 at 13: 00 Meloxicam (Mobic) 15 mg DAILY PO Last administered on 08/05/16 09:03; Admin Dose 15 MG; Start 08/02/16 at 09:00 Lorazepam (Ativan) 1 mg Q6H PRN IV anxiety Last administered on 08/05/16 02:03 ; Admin Dose 1 MG; Start 08/01/16 at 13:00 Enoxaparin Sodium 30 mg 30 mg DAILY SC Last administered on 08/05/16 09:10; Admin Dose 30 MG; Start 08/03/16 at 09:00 Ciprofloxacin/ Dextrose (Cipro Ivpb) 100 ml @ 100 mls/hr Q12 IVPB Last administered on 08/05/16 09:03; Admin Dose 100 MLS/HR; Start 08/03/16 at 21:00 Hydralazine HCl (Apresoline) 10 mg Q6H PRN IV SBP > 170 Last administered on 16:44; Admin Dose 10 MG; Start 08/04/16 at 17:00 KESHAV JORGE Aug 05, 2016 12:32
[2016-08-05 14:51] VITALS: BP 175/75; PULSE 64
[2016-08-05 15:18] VITALS: BP 155/76; RESP 18
[2016-08-05 20:02] VITALS: BP 185/84; RESP 18
[2016-08-05] MEDS: ATORVASTATIN 20 MG TAB PO SCH (20:31)
[2016-08-06] MEDS: metroNIDAZOLE 500 MG/NS (PMX) 100 ML IVPB SCH ×4 (05:45→22:00)
[2016-08-06 06:02] LABS: ADD SCAN DIFF NO
[2016-08-06 06:07] LABS: BASOPHIL # 0.1 10^3/ul (0.0-0.1); BASOPHILS % 0.8 % (0.0-2.0); EOSINOPHILS # 0.2 10^3/ul (0.0-0.5); HEMATOCRIT 32.2 % (37.0-47.0); HEMOGLOBIN 10.8 g/dl (12.0-16.0); LYMPHOCYTES % 47.3 % (15.0-51.0); MEAN CORPUSCULAR HEMOGLOBIN 30.3 pg (29.0-33.0); MEAN CORPUSCULAR HGB CONC 33.5 g/dl (32.0-37.0); MEAN CORPUSCULAR VOLUME 90.4 fl (82.0-101.0); MEAN PLATELET VOLUME 9.1 fl (7.4-10.4); MONOCYTE # 0.6 10^3/ul (0.3-0.9); MONOCYTES % 9.5 % (0.0-11.0); NEUTROPHIL # 2.5 10^3/ul (1.6-7.5); NEUTROPHILS % 39.2 % (39.0-77.0); PLATELET COUNT 211 10^3/UL (140-415); RED BLOOD COUNT 3.56 10^6/ul (4.20-5.40); RED CELL DISTRIBUTION WIDTH 13.1 % (11.5-14.5); WHITE BLOOD COUNT 6.4 10^3/ul (4.8-10.8)
[2016-08-06 06:22] VITALS: BP 173/75; PULSE 73
[2016-08-06] MEDS: hydrALAzine 20 MG INJ IV PRN ×2 (06:22→22:50)
[2016-08-06 06:44] LABS: CALCIUM 8.7 mg/dl (8.4-10.2); CREATININE 0.65 mg/dl (0.44-1.00); POTASSIUM 3.8 mmol/L (3.5-5.1)
[2016-08-06 06:59] VITALS: BP 126/59; PULSE 86
[2016-08-06 08:14] VITALS: BP 138/64; RESP 16
[2016-08-06] MEDS: MELOXICAM 15 MG TAB PO SCH (09:44)
[2016-08-06] MEDS: CIPROFLOXACIN 200 MG/D5W IVPB 100 ML IVPB SCH ×2 (09:47→20:52)
[2016-08-06] MEDS: ENOXAPARIN 30 MG/0.3 ML SYG SC SCH (09:52)
--- NOTE | 2016-08-06 16:32 | PN ---
Date/Time of Note Date/Time of Note DATE: 08/06/16 TIME: 16:29 Assessment/Plan VTE Prophylaxis VTE Prophylaxis Intervention: SCD's Lines/Catheters IV Catheter Type (from [facility]): Peripheral IV Urinary Cath still in place: No Assessment/Plan Chief Complaint/Hosp Course Patient tolerates diet well, denies any abdominal pain. Patient's complains of constipation and bilateral lower extremities edema. Will obtain DVT of lower extremities. Assessment/Plan -Acute non-complicated diverticulitis. Continue antibiotics. Dr. Taylor is following in general surgery consultation. -Hypo-natremia, resolved. -Hypertension, continue current Coreg and hydralazine. -Hyperlipidemia, continue Lipitor. -Obesity with BMI of 31.4 Anticipate discharge tomorrow on oral antibiotics to complete the treatment for diverticulitis. Further recommendations based on clinical course. Plan of care discussed with Dr. Segura. Problems: Exam/Review of Systems Vital Signs Vitals Vital Signs Date Time Temp Pulse Resp B/P Pulse Ox O2 Delivery O2 Flow Rate FiO2 08/06/16 08:14 98.5 79 16 138/64 95 08/04/16 17:00 Room Air Intake and Output 08/05/16 08/05/16 08/06/16 15:00 23:00 07:00 Intake Total 900 ml 330 ml 560 ml Balance 900 ml 330 ml 560 ml Exam Constitutional: alert, oriented Head: normocephalic Neck: supple Respiratory: clear to auscultation, normal air movement Cardiovascular: nl pulses, regular rate and rhythm Gastrointestinal: soft, tender (Left lower quadrant) Extremities: normal pulses Results Result Diagram: 08/06/16 0527 08/06/16 0527 Results 24 hrs Laboratory Tests Test 08/06/16 05:27 White Blood Count 6.4 Red Blood Count 3.56 L Hemoglobin 10.8 L Hematocrit 32.2 L Mean Corpuscular Volume 90.4 Mean Corpuscular Hemoglobin 30.3 Mean Corpuscular Hemoglobin Concent 33.5 Red Cell Distribution Width 13.1 Platelet Count 211 Mean Platelet Volume 9.1 Neutrophils % 39.2 Lymphocytes % 47.3 Monocytes % 9.5 Eosinophils % 3.0 Basophils % 0.8 Nucleated Red Blood Cells % 0.0 Neutrophils # 2.5 Lymphocytes # 3.0 H Monocytes # 0.6 Eosinophils # 0.2 Basophils # 0.1 Nucleated Red Blood Cells # 0.0 Sodium Level 140 Potassium Level 3.8 Chloride Level 106 Carbon Dioxide Level 25 Anion Gap 13 # Blood Urea Nitrogen 7 Creatinine 0.65 Glucose Level 96 Calcium Level 8.7 Medications Medications Current Medications Ondansetron HCl 4 mg 4 mg Q6H PRN IV NAUSEA AND/OR VOMITING Last administered on 08/04/16 17:37; Admin Dose 4 MG; Start 08/01/16 at 03:30 Metronidazole (Flagyl 500 Mg (Pmx)) 100 ml @ 100 mls/hr Q8 IVPB Last administered on 08/06/16 14:43; Admin Dose 100 MLS/HR; Start 08/01/16 at 06:00 Morphine Sulfate (morphine) 2 mg Q4H PRN IV PAIN Last administered on 08:00; Admin Dose 2 MG; Start 08/01/16 at 04:00 Atorvastatin Calcium (Lipitor) 20 mg QHS PO Last administered on 08/05/16 20:31 ; Admin Dose 20 MG; Start 08/01/16 at 21:00 Carvedilol (Coreg) 6.25 mg BID PO Last administered on 08/06/16 09:44; Admin Dose 6.25 MG; Start 08/01/16 at 21:00 Hydralazine HCl (Apresoline) 10 mg TID PO Last administered on 08/06/16 12:52; Admin Dose 10 MG; Start 08/01/16 at 13:00 Acetaminophen/ Hydrocodone Bitart ([place] (5/325)) 1 tab Q4H PRN PO PAIN LEVEL 4 -7 Last administered on 08/04/16 23:01; Admin Dose 1 TAB; Start 08/01/16 at 13: 00 Meloxicam (Mobic) 15 mg DAILY PO Last administered on 08/06/16 09:44; Admin Dose 15 MG; Start 08/02/16 at 09:00 Lorazepam (Ativan) 1 mg Q6H PRN IV anxiety Last administered on 08/05/16 02:03 ; Admin Dose 1 MG; Start 08/01/16 at 13:00 Enoxaparin Sodium 30 mg 30 mg DAILY SC Last administered on 08/06/16 09:52; Admin Dose 30 MG; Start 08/03/16 at 09:00 Ciprofloxacin/ Dextrose (Cipro Ivpb) 100 ml @ 100 mls/hr Q12 IVPB Last administered on 08/06/16 09:47; Admin Dose 100 MLS/HR; Start 08/03/16 at 21:00 Hydralazine HCl (Apresoline) 10 mg Q6H PRN IV SBP > 170 Last administered on 06:22; Admin Dose 10 MG; Start 08/04/16 at 17:00 WILTON ARRIAGA Aug 06, 2016 16:32
[2016-08-06] MEDS ORDERED: MINERAL OIL 30ML CUP PO PRN (17:00)
[2016-08-06] MEDS ORDERED: FUROSEMIDE 20 MG INJ IV ONE (17:00)
--- NOTE | 2016-08-06 19:57 | PN ---
Date/Time of Note Date/Time of Note DATE: 08/05/16 TIME: 19:56 Assessment/Plan Lines/Catheters IV Catheter Type (from Nrs): Peripheral IV Reinoso in Place (from Nrs): No Assessment/Plan Chief Complaint/Hosp Course 1. Abdominal pain with CT findings that are suggestive of acute noncomplicated diverticulitis. No surgical intervention required at this time. -antibiotics -supportive care -diet as tolerated -judicious fluids -no surgical intervention required at this time. 2. Dyspnea, improved 3. Obesity. Encourage nutritional optimization and exercise to lose weight and improve her overall health status. 4. Anemia without evidence of acute blood loss. -monitor -eventual gastrointestinal workup 5. Hypertension. Continue nutrition and medication control and encourage weight loss. 6. Significant hyponatremia. Corrected Thank you Late entry 08/05 Problems: Subjective 24 Hr Interval Summary Min LLQ pain. No f/c. No cp/sob. No cough. No sz. No rash. No dysuria. No visual or neuro changes. Exam/Review of Systems Vital Signs Vitals Vital Signs Date Time Temp Pulse Resp B/P Pulse Ox O2 Delivery O2 Flow Rate FiO2 08/06/16 08:14 98.5 79 16 138/64 95 08/04/16 17:00 Room Air Intake and Output 08/05/16 08/05/16 08/06/16 14:59 22:59 06:59 Intake Total 900 ml 330 ml 560 ml Balance 900 ml 330 ml 560 ml Exam Free Text/Dictation GENERAL: Obese. No acute distress, comfortable, pleasant. HEENT: Pupils equal, reactive. No scleral icterus. Mucous membranes are moist. NECK: Supple. No JVD. PULMONARY: Normal respiratory effort. No wheezing. CARDIAC: S1, S2 present. ABDOMEN: Soft, obese, nontender. No rebound, no guarding, not rigid. EXTREMITIES: No edema. VASCULAR: Cap refill less than 2 seconds. NEUROLOGIC: Alert, oriented. Moves all 4 extremities grossly. Results Result Diagram: 08/06/1627 08/06/16 0527 DANIELLA DURAN MD Aug 06, 2016 19:57
--- NOTE | 2016-08-06 19:58 | PN ---
Date/Time of Note Date/Time of Note DATE: 08/06/16 TIME: 19:57 Assessment/Plan Lines/Catheters IV Catheter Type (from [facility]): Peripheral IV Reinoso in Place (from [facility]): No Assessment/Plan Chief Complaint/Hosp Course 1. Abdominal pain with CT findings that are suggestive of acute noncomplicated diverticulitis. No surgical intervention required at this time. -antibiotics -supportive care -diet as tolerated -judicious fluids -no surgical intervention required at this time. 2. Dyspnea, improved 3. Obesity. Encourage nutritional optimization and exercise to lose weight and improve her overall health status. 4. Anemia without evidence of acute blood loss. -monitor -eventual gastrointestinal workup 5. Hypertension. Continue nutrition and medication control and encourage weight loss. 6. Significant hyponatremia. Corrected Thank you Problems: Subjective 24 Hr Interval Summary Min LLQ pain. No f/c. No cp/sob. No cough. No sz. No rash. No dysuria. No visual or neuro changes. Exam/Review of Systems Vital Signs Vitals Vital Signs Date Time Temp Pulse Resp B/P Pulse Ox O2 Delivery O2 Flow Rate FiO2 08/06/16 08:14 98.5 79 16 138/64 95 08/04/16 17:00 Room Air Intake and Output 08/05/16 08/05/16 08/06/16 14:59 22:59 06:59 Intake Total 900 ml 330 ml 560 ml Balance 900 ml 330 ml 560 ml Exam Free Text/Dictation GENERAL: Obese. No acute distress, comfortable, pleasant. HEENT: Pupils equal, reactive. No scleral icterus. Mucous membranes are moist. NECK: Supple. No JVD. PULMONARY: Normal respiratory effort. No wheezing. CARDIAC: S1, S2 present. ABDOMEN: Soft, obese, nontender. No rebound, no guarding, not rigid. EXTREMITIES: No edema. VASCULAR: Cap refill less than 2 seconds. NEUROLOGIC: Alert, oriented. Moves all 4 extremities grossly. Results Result Diagram: 08/06/16 0527 08/06/16 0527 DANIELLA DURAN MD Aug 06, 2016 19:58
[2016-08-06 20:21] VITALS: BP 187/79; RESP 18
[2016-08-06] MEDS: ATORVASTATIN 20 MG TAB PO SCH (20:52)
[2016-08-06] MEDS: DOCUSATE SODIUM 100 MG CAP PO SCH (20:53)
--- NOTE | 2016-08-06 22:18 | RADRPT ---
PROCEDURE: Ultrasound of the bilateral lower extremity venous system. CLINICAL INDICATION: Bilateral leg pain and swelling, deep venous thrombosis TECHNIQUE: Morley scale with and without compression, color doppler, spectral doppler of the venous system of the bilateral lower extremities was performed. Venous augmentation maneuvers were utilized . COMPARISON: No prior studies are available for comparison. FINDINGS: RIGHT: Common femoral vein: Patent. Femoral vein: Patent. Popliteal vein: Patent. Calf veins: Patent. No soft tissue abnormalities are identified. LEFT: Common femoral vein: Patent. Femoral vein: Patent. Popliteal vein: Patent. Calf veins: Patent. No soft tissue abnormalities are identified. IMPRESSION: No evidence of a deep vein thrombosis within the bilateral lower extremities. RPTAT: AADD .Gerry Ramos MD, MD Date Time Electronically viewed and signed by .Gerry Ramos MD, on 08/06/2016 22:17 .B/
[2016-08-06 23:10] VITALS: BP 147/62
[2016-08-06 23:30] VITALS: BP 119/56
[2016-08-07] MEDS: ONDANSETRON 4 MG INJ IV PRN (01:47)
[2016-08-07] MEDS: metroNIDAZOLE 500 MG/NS (PMX) 100 ML IVPB SCH ×3 (06:19→22:33)
[2016-08-07 07:47] VITALS: BP 145/67; RESP 16
[2016-08-07] MEDS: DOCUSATE SODIUM 100 MG CAP PO SCH ×2 (08:46→21:07)
[2016-08-07] MEDS: MELOXICAM 15 MG TAB PO SCH (08:47)
[2016-08-07] MEDS: ENOXAPARIN 30 MG/0.3 ML SYG SC SCH (08:52)
[2016-08-07] MEDS: CIPROFLOXACIN 200 MG/D5W IVPB 100 ML IVPB SCH ×2 (11:23→21:07)
[2016-08-07 13:33] VITALS: BP 159/72; PULSE 69
--- NOTE | 2016-08-07 14:27 | PN ---
Date/Time of Note Date/Time of Note DATE: 08/07/16 TIME: 14:20 Assessment/Plan VTE Prophylaxis VTE Prophylaxis Intervention: other Lines/Catheters IV Catheter Type (from Nrs): Peripheral IV Urinary Cath still in place: No Assessment/Plan Assessment/Plan -Acute non-complicated diverticulitis. Continue antibiotics. Dr. Taylor is following in general surgery consultation. -Hypo-natremia, resolved. -Hypertension, continue current Coreg and hydralazine. -Hyperlipidemia, continue Lipitor. -Obesity with BMI of 31.4 -Weight management Anticipate discharge tomorrow on oral antibiotics to complete the treatment for diverticulitis. Further recommendations based on clinical course. Plan of care discussed with Dr. Segura. Subjective 24 Hr Interval Summary Free Text/Dictation nad, afebrile, c/o abdominal pain. Improved with pain medication, discussed with the staff no new events reported overnight Respiratory: no complaints Cardiovascular: no complaints Gastrointestinal: pain Genitourinary: no complaints Musculoskeletal: no complaints Skin: no complaints Exam/Review of Systems Vital Signs Vitals Vital Signs Date Time Temp Pulse Resp B/P Pulse Ox O2 Delivery O2 Flow Rate FiO2 08/07/16 13:33 69 159/72 08/07/16 07:47 98.5 16 97 08/04/16 17:00 Room Air Intake and Output 08/06/16 08/06/16 08/07/16 14:59 22:59 06:59 Intake Total 100 ml 1220 ml 500 ml Balance 100 ml 1220 ml 500 ml Exam Constitutional: alert, oriented Respiratory: clear to auscultation, normal air movement Cardiovascular: nl pulses, regular rate and rhythm Gastrointestinal: non-tender, soft Musculoskeletal: nl extremities to inspection Extremities: normal pulses Neurological: nl mental status, nl speech Skin: nl turgor Results Result Diagram: 08/06/1652608/06/16526 Medications Medications Current Medications Ondansetron HCl 4 mg 4 mg Q6H PRN IV NAUSEA AND/OR VOMITING Last administered on 08/07/16 01:47; Admin Dose 4 MG; Start 08/01/16 at 03:30 Metronidazole (Flagyl 500 Mg (Pmx)) 100 ml @ 100 mls/hr Q8 IVPB Last administered on 08/07/16 13:29; Admin Dose 100 MLS/HR; Start 08/01/16 at 06:00 Morphine Sulfate (morphine) 2 mg Q4H PRN IV PAIN Last administered on 08:00; Admin Dose 2 MG; Start 08/01/16 at 04:00 Atorvastatin Calcium (Lipitor) 20 mg QHS PO Last administered on 08/06/16 20:52 ; Admin Dose 20 MG; Start 08/01/16 at 21:00 Carvedilol (Coreg) 6.25 mg BID PO Last administered on 08/07/16 08:46; Admin Dose 6.25 MG; Start 08/01/16 at 21:00 Hydralazine HCl (Apresoline) 10 mg TID PO Last administered on 08/07/16 13:33; Admin Dose 10 MG; Start 08/01/16 at 13:00 Acetaminophen/ Hydrocodone Bitart ([place] (5/325)) 1 tab Q4H PRN PO PAIN LEVEL 4 -7 Last administered on 08/04/16 23:01; Admin Dose 1 TAB; Start 08/01/16 at 13: 00 Meloxicam (Mobic) 15 mg DAILY PO Last administered on 08/07/16 08:47; Admin Dose 15 MG; Start 08/02/16 at 09:00 Lorazepam (Ativan) 1 mg Q6H PRN IV anxiety Last administered on 08/05/16 02:03 ; Admin Dose 1 MG; Start 08/01/16 at 13:00 Enoxaparin Sodium 30 mg 30 mg DAILY SC Last administered on 08/07/16 08:52; Admin Dose 30 MG; Start 08/03/16 at 09:00 Ciprofloxacin/ Dextrose (Cipro Ivpb) 100 ml @ 100 mls/hr Q12 IVPB Last administered on 08/07/16 11:23; Admin Dose 100 MLS/HR; Start 08/03/16 at 21:00 Hydralazine HCl (Apresoline) 10 mg Q6H PRN IV SBP > 170 Last administered on 22:50; Admin Dose 10 MG; Start 08/04/16 at 17:00 Docusate Sodium (Colace) 100 mg BID PO Last administered on 08/07/16 08:46; Admin Dose 100 MG; Start 08/06/16 at 21:00 Mineral Oil (Mineral Oil) 30 ml BID PRN PO CONSTIPATION Last administered on t 18:24; Admin Dose 30 ML; Start 08/06/16 at 17:00 KESHAV JORGE Aug 07, 2016 14:27
[2016-08-07 20:21] VITALS: BP 169/77; RESP 19
[2016-08-07] MEDS: ATORVASTATIN 20 MG TAB PO SCH (21:07)
--- NOTE | 2016-08-07 23:21 | PN ---
Date/Time of Note Date/Time of Note DATE: 08/07/16 TIME: 23:20 Assessment/Plan Lines/Catheters IV Catheter Type (from [facility]): Saline Lock Reinoso in Place (from [facility]): No Assessment/Plan Chief Complaint/Hosp Course 1. Abdominal pain with CT findings that are suggestive of acute noncomplicated diverticulitis. No surgical intervention required at this time. -antibiotics -supportive care -diet as tolerated -judicious fluids -no surgical intervention required at this time. 2. Dyspnea, improved 3. Obesity. Encourage nutritional optimization and exercise to lose weight and improve her overall health status. 4. Anemia without evidence of acute blood loss. -monitor -eventual gastrointestinal workup 5. Hypertension. Continue nutrition and medication control and encourage weight loss. Thank you Problems: Subjective 24 Hr Interval Summary No pain. No f/c. No cp/sob. No cough. No sz. No rash. No dysuria. No visual or neuro changes. Exam/Review of Systems Vital Signs Vitals Vital Signs Date Time Temp Pulse Resp B/P Pulse Ox O2 Delivery O2 Flow Rate FiO2 08/07/16 20:21 98.2 79 19 169/77 97 08/04/16 17:00 Room Air Intake and Output 08/06/16 08/06/16 08/07/16 15:00 23:00 07:00 Intake Total 100 ml 1320 ml 400 ml Balance 100 ml 1320 ml 400 ml Exam Free Text/Dictation GENERAL: Obese. No acute distress, comfortable, pleasant. HEENT: Pupils equal, reactive. No scleral icterus. Mucous membranes are moist. NECK: Supple. No JVD. PULMONARY: Normal respiratory effort. No wheezing. CARDIAC: S1, S2 present. ABDOMEN: Soft, obese, nontender. No rebound, no guarding, not rigid. EXTREMITIES: No edema. VASCULAR: Cap refill less than 2 seconds. NEUROLOGIC: Alert, oriented. Moves all 4 extremities grossly. Results Result Diagram: 08/06/16 0527 08/06/16 0527 DANIELLA DURAN MD Aug 07, 2016 23:21
[2016-08-08 06:03] LABS: ADD SCAN DIFF NO
[2016-08-08 06:09] LABS: BASOPHILS % 0.6 % (0.0-2.0); EOSINOPHILS # 0.2 10^3/ul (0.0-0.5); EOSINOPHILS % 3.2 % (0.0-7.0); HEMATOCRIT 31.2 % (37.0-47.0); HEMOGLOBIN 10.2 g/dl (12.0-16.0); LYMPHOCYTES # 2.6 10^3/ul (0.8-2.9); LYMPHOCYTES % 52.2 % (15.0-51.0); MEAN CORPUSCULAR HEMOGLOBIN 29.4 pg (29.0-33.0); MEAN CORPUSCULAR HGB CONC 32.7 g/dl (32.0-37.0); MEAN CORPUSCULAR VOLUME 89.9 fl (82.0-101.0); MEAN PLATELET VOLUME 9.1 fl (7.4-10.4); MONOCYTE # 0.5 10^3/ul (0.3-0.9); NEUTROPHIL # 1.7 10^3/ul (1.6-7.5); NEUTROPHILS % 33.8 % (39.0-77.0); PLATELET COUNT 207 10^3/UL (140-415); RED BLOOD COUNT 3.47 10^6/ul (4.20-5.40); RED CELL DISTRIBUTION WIDTH 13.4 % (11.5-14.5)
[2016-08-08] MEDS: metroNIDAZOLE 500 MG/NS (PMX) 100 ML IVPB SCH ×3 (06:10→22:21)
[2016-08-08 06:28] LABS: CALCIUM 8.5 mg/dl (8.4-10.2); CREATININE 0.67 mg/dl (0.44-1.00); POTASSIUM 3.4 mmol/L (3.5-5.1)
[2016-08-08 07:54] VITALS: BP 140/89; RESP 16
[2016-08-08] MEDS: MELOXICAM 15 MG TAB PO SCH (09:41)
[2016-08-08] MEDS: DOCUSATE SODIUM 100 MG CAP PO SCH ×2 (09:41→20:06)
[2016-08-08] MEDS: CIPROFLOXACIN 200 MG/D5W IVPB 100 ML IVPB SCH ×2 (09:42→20:06)
[2016-08-08] MEDS: ENOXAPARIN 30 MG/0.3 ML SYG SC SCH (09:47)
[2016-08-08] MEDS ORDERED: POTASSIUM CHLORIDE (SR) 10 MEQ TAB PO ONE (12:00)
--- NOTE | 2016-08-08 13:33 | PN ---
Date/Time of Note Date/Time of Note DATE: 08/08/16 TIME: 13:32 Assessment/Plan Lines/Catheters IV Catheter Type (from Nrs): Saline Lock Reinoso in Place (from Nrs): No Assessment/Plan Chief Complaint/Hosp Course 1. Abdominal pain with CT findings that are suggestive of acute noncomplicated diverticulitis. No surgical intervention required at this time. -antibiotics -supportive care -diet as tolerated -judicious fluids -no surgical intervention required at this time. -dc planning ok from surgical standpoint 2. Dyspnea, improved 3. Obesity. Encourage nutritional optimization and exercise to lose weight and improve her overall health status. 4. Anemia without evidence of acute blood loss. Stable 5. Hypertension. Continue nutrition and medication control and encourage weight loss. Thank you Problems: Subjective 24 Hr Interval Summary No pain. No f/c. No cp/sob. No cough. No sz. No rash. No dysuria. No visual or neuro changes. Exam/Review of Systems Vital Signs Vitals Vital Signs Date Time Temp Pulse Resp B/P Pulse Ox O2 Delivery O2 Flow Rate FiO2 08/08/16 07:54 97.4 74 16 140/89 97 08/04/16 17:00 Room Air Intake and Output 08/07/16 08/07/16 08/08/16 15:00 23:00 07:00 Intake Total 100 ml 1700 ml 500 ml Balance 100 ml 1700 ml 500 ml Exam Free Text/Dictation GENERAL: Obese. No acute distress, comfortable, pleasant. HEENT: Pupils equal, reactive. No scleral icterus. Mucous membranes are moist. NECK: Supple. No JVD. PULMONARY: Normal respiratory effort. No wheezing. CARDIAC: S1, S2 present. ABDOMEN: Soft, obese, nontender. No rebound, no guarding, not rigid. EXTREMITIES: No edema. VASCULAR: Cap refill less than 2 seconds. NEUROLOGIC: Alert, oriented. Moves all 4 extremities grossly. Results Result Diagram: 08/08/1651908/08/1620 DANIELLA DURAN MD Aug 08, 2016 13:33
--- NOTE | 2016-08-08 14:14 | PN ---
Date/Time of Note Date/Time of Note DATE: 08/08/16 TIME: 14:07 Assessment/Plan Lines/Catheters IV Catheter Type (from [email or web address] Saline Lock Urinary Cath still in place: No Assessment/Plan Assessment/Plan - Hypokalemia- replet K, xuan BMP -Acute non-complicated diverticulitis. Continue antibiotics. - per Dr. Taylor in general surgery consultation. -Hypertension, continue current Coreg and hydralazine. -Hyperlipidemia, continue Lipitor. -Obesity with BMI of 31.4 -Weight management Anticipate discharge tomorrow on oral antibiotics to complete the treatment for diverticulitis. Further recommendations based on clinical course. Plan of care discussed with Dr. Segura. Exam/Review of Systems Vital Signs Vitals Vital Signs Date Time Temp Pulse Resp B/P Pulse Ox O2 Delivery O2 Flow Rate FiO2 08/08/16 07:54 97.4 74 16 140/89 97 08/04/16 17:00 Room Air Intake and Output 08/07/16 08/07/16 08/08/16 15:00 23:00 07:00 Intake Total 100 ml 1700 ml 500 ml Balance 100 ml 1700 ml 500 ml Results Result Diagram: 08/08/16 0520 08/08/16 0520 Results 24 hrs Laboratory Tests Test 08/08/16 05:20 White Blood Count 5.0 # Red Blood Count 3.47 L Hemoglobin 10.2 L Hematocrit 31.2 L Mean Corpuscular Volume 89.9 Mean Corpuscular Hemoglobin 29.4 Mean Corpuscular Hemoglobin Concent 32.7 Red Cell Distribution Width 13.4 Platelet Count 207 Mean Platelet Volume 9.1 Neutrophils % 33.8 L Lymphocytes % 52.2 H Monocytes % 10.0 Eosinophils % 3.2 Basophils % 0.6 Nucleated Red Blood Cells % 0.0 Neutrophils # 1.7 Lymphocytes # 2.6 Monocytes # 0.5 Eosinophils # 0.2 Basophils # 0.0 Nucleated Red Blood Cells # 0.0 Sodium Level 139 Potassium Level 3.4 L Chloride Level 107 Carbon Dioxide Level 28 Anion Gap 7 L Blood Urea Nitrogen 7 Creatinine 0.67 Glucose Level 99 Calcium Level 8.5 Medications Medications Current Medications Ondansetron HCl 4 mg 4 mg Q6H PRN IV NAUSEA AND/OR VOMITING Last administered on 08/07/16t 01:47; Admin Dose 4 MG; Start 08/01/16 at 03:30 Metronidazole (Flagyl 500 Mg (Pmx)) 100 ml @ 100 mls/hr Q8 IVPB Last administered on 08/08/16 13:33; Admin Dose 100 MLS/HR; Start 08/01/16 at 06:00 Morphine Sulfate (morphine) 2 mg Q4H PRN IV PAIN Last administered on 08:00; Admin Dose 2 MG; Start 08/01/16 at 04:00 Atorvastatin Calcium (Lipitor) 20 mg QHS PO Last administered on 08/07/16 21:07 ; Admin Dose 20 MG; Start 08/01/16 at 21:00 Carvedilol (Coreg) 6.25 mg BID PO Last administered on 08/08/16 09:41; Admin Dose 6.25 MG; Start 08/01/16 at 21:00 Hydralazine HCl (Apresoline) 10 mg TID PO Last administered on 08/08/16 13:33; Admin Dose 10 MG; Start 08/01/16 at 13:00 Acetaminophen/ Hydrocodone Bitart ([place] (5/325)) 1 tab Q4H PRN PO PAIN LEVEL 4 -7 Last administered on 08/04/16 23:01; Admin Dose 1 TAB; Start 08/01/16 at 13: 00 Meloxicam (Mobic) 15 mg DAILY PO Last administered on 08/08/16 09:41; Admin Dose 15 MG; Start 08/02/16 at 09:00 Lorazepam (Ativan) 1 mg Q6H PRN IV anxiety Last administered on 08/05/16 02:03 ; Admin Dose 1 MG; Start 08/01/16 at 13:00 Enoxaparin Sodium 30 mg 30 mg DAILY SC Last administered on 08/08/16 09:47; Admin Dose 30 MG; Start 08/03/16 at 09:00 Ciprofloxacin/ Dextrose (Cipro Ivpb) 100 ml @ 100 mls/hr Q12 IVPB Last administered on 08/08/16 09:42; Admin Dose 100 MLS/HR; Start 08/03/16 at 21:00 Hydralazine HCl (Apresoline) 10 mg Q6H PRN IV SBP > 170 Last administered on 22:50; Admin Dose 10 MG; Start 08/04/16 at 17:00 Docusate Sodium (Colace) 100 mg BID PO Last administered on 08/08/16 09:41; Admin Dose 100 MG; Start 08/06/16 at 21:00 Mineral Oil (Mineral Oil) 30 ml BID PRN PO CONSTIPATION Last administered on 18:24; Admin Dose 30 ML; Start 08/06/16 at 17:00 KESHAV JORGE Aug 08, 2016 14:14
[2016-08-08 19:14] VITALS: RESP 24
[2016-08-08 20:05] VITALS: BP 191/86; PULSE 94; RESP 20
[2016-08-08] MEDS: ATORVASTATIN 20 MG TAB PO SCH (20:06)
[2016-08-08 22:00] VITALS: BP 149/67; PULSE 75
[2016-08-09 05:40] LABS: ADD SCAN DIFF NO
[2016-08-09] MEDS: metroNIDAZOLE 500 MG/NS (PMX) 100 ML IVPB SCH ×3 (05:44→21:52)
[2016-08-09 05:50] LABS: BASOPHILS % 0.7 % (0.0-2.0); EOSINOPHILS # 0.2 10^3/ul (0.0-0.5); EOSINOPHILS % 2.6 % (0.0-7.0); HEMATOCRIT 30.8 % (37.0-47.0); HEMOGLOBIN 10.2 g/dl (12.0-16.0); LYMPHOCYTES % 52.6 % (15.0-51.0); MEAN CORPUSCULAR HGB CONC 33.1 g/dl (32.0-37.0); MEAN CORPUSCULAR VOLUME 90.6 fl (82.0-101.0); MONOCYTE # 0.6 10^3/ul (0.3-0.9); MONOCYTES % 10.4 % (0.0-11.0); NEUTROPHIL # 1.9 10^3/ul (1.6-7.5); NEUTROPHILS % 33.5 % (39.0-77.0); PLATELET COUNT 201 10^3/UL (140-415); RED CELL DISTRIBUTION WIDTH 13.4 % (11.5-14.5); WHITE BLOOD COUNT 5.7 10^3/ul (4.8-10.8)
[2016-08-09 05:59] LABS: CALCIUM 8.5 mg/dl (8.4-10.2); CREATININE 0.66 mg/dl (0.44-1.00); POTASSIUM 3.7 mmol/L (3.5-5.1)
[2016-08-09 07:49] VITALS: BP 186/79; RESP 18
[2016-08-09] MEDS: MELOXICAM 15 MG TAB PO SCH (08:50)
[2016-08-09] MEDS: DOCUSATE SODIUM 100 MG CAP PO SCH ×2 (08:50→20:47)
[2016-08-09] MEDS: CIPROFLOXACIN 200 MG/D5W IVPB 100 ML IVPB SCH ×2 (08:51→20:47)
[2016-08-09] MEDS: ENOXAPARIN 30 MG/0.3 ML SYG SC SCH (08:59)
[2016-08-09 13:59] VITALS: BP 161/73; PULSE 78
[2016-08-09] MEDS: hydrALAzine 20 MG INJ IV PRN (14:35)
[2016-08-09 18:57] VITALS: BP 150/67; PULSE 94
[2016-08-09] MEDS: HYDROCODONE/APAP (5/325) TAB PO PRN (19:02)
--- NOTE | 2016-08-09 19:07 | PN ---
Date/Time of Note Date/Time of Note DATE: 08/09/16 TIME: 19:05 Assessment/Plan VTE Prophylaxis VTE Prophylaxis Intervention: SCD's Lines/Catheters IV C[facility] Type (from [facility]): Saline Lock Urinary Cath still in place: No Assessment/Plan Chief Complaint/Hosp Course Patient's complains of headache, BP systolic and 180s today status post IV hydralazine, continue Coreg and add lisinopril for better blood pressure control. Anticipate discharge home tomorrow if patient blood pressure is stable. Patient denies any abdominal pain denies nausea vomiting, tolerates diet well. Assessment/Plan -Headache secondary to hypertension. -Hypertension, continue Coreg and lisinopril. -Acute non-complicated diverticulitis. Continue antibiotics. Dr. Taylor is following in general surgery consultation. -Hypo-natremia, resolved. -Hyperlipidemia, continue Lipitor. -Obesity with BMI of 31.4 Anticipate discharge tomorrow on oral antibiotics to complete the treatment for diverticulitis. Further recommendations based on clinical course. Plan of care discussed with Dr. Segura. Problems: Exam/Review of Systems Vital Signs Vitals Vital Signs Date Time Temp Pulse Resp B/P Pulse Ox O2 Delivery O2 Flow Rate FiO2 08/09/16 18:57 94 150/67 08/09/16 07:49 97.3 18 98 08/08/16 20:05 Room Air Intake and Output 08/08/16 08/08/16 08/09/16 15:00 23:00 07:00 Intake Total 1640 ml 700 ml Balance 1640 ml 700 ml Exam Constitutional: alert, oriented Head: normocephalic Neck: supple Respiratory: clear to auscultation, normal air movement Cardiovascular: nl pulses, regular rate and rhythm Gastrointestinal: soft, BS+ Extremities: normal pulses Results Result Diagram: 08/09/1615 08/09/16 0515 Results 24 hrs Laboratory Tests Test 08/09/16 05:15 White Blood Count 5.7 Red Blood Count 3.40 L Hemoglobin 10.2 L Hematocrit 30.8 L Mean Corpuscular Volume 90.6 Mean Corpuscular Hemoglobin 30.0 Mean Corpuscular Hemoglobin Concent 33.1 Red Cell Distribution Width 13.4 Platelet Count 201 Mean Platelet Volume 9.0 Neutrophils % 33.5 L Lymphocytes % 52.6 H Monocytes % 10.4 Eosinophils % 2.6 Basophils % 0.7 Nucleated Red Blood Cells % 0.0 Neutrophils # 1.9 Lymphocytes # 3.0 H Monocytes # 0.6 Eosinophils # 0.2 Basophils # 0.0 Nucleated Red Blood Cells # 0.0 Sodium Level 141 Potassium Level 3.7 Chloride Level 109 Carbon Dioxide Level 26 Anion Gap 10 Blood Urea Nitrogen 7 Creatinine 0.66 Glucose Level 91 Calcium Level 8.5 Medications Medications Current Medications Ondansetron HCl 4 mg 4 mg Q6H PRN IV NAUSEA AND/OR VOMITING Last administered on 08/07/16 01:47; Admin Dose 4 MG; Start 08/01/16 at 03:30 Metronidazole (Flagyl 500 Mg (Pmx)) 100 ml @ 100 mls/hr Q8 IVPB Last administered on 08/09/16 13:58; Admin Dose 100 MLS/HR; Start 08/01/16 at 06:00 Morphine Sulfate (morphine) 2 mg Q4H PRN IV PAIN Last administered on 08:00; Admin Dose 2 MG; Start 08/01/16 at 04:00 Atorvastatin Calcium (Lipitor) 20 mg QHS PO Last administered on 08/08/16 20:06 ; Admin Dose 20 MG; Start 08/01/16 at 21:00 Carvedilol (Coreg) 6.25 mg BID PO Last administered on 08/09/16 08:51; Admin Dose 6.25 MG; Start 08/01/16 at 21:00 Hydralazine HCl (Apresoline) 10 mg TID PO Last administered on 08/09/16 13:37; Admin Dose 10 MG; Start 08/01/16 at 13:00 Acetaminophen/ Hydrocodone Bitart ([place] (5/325)) 1 tab Q4H PRN PO PAIN LEVEL 4 -7 Last administered on 08/09/16 19:02; Admin Dose 1 TAB; Start 08/01/16 at 13: 00 Meloxicam (Mobic) 15 mg DAILY PO Last administered on 08/09/16 08:50; Admin Dose 15 MG; Start 08/02/16 at 09:00 Lorazepam (Ativan) 1 mg Q6H PRN IV anxiety Last administered on 08/05/16 02:03 ; Admin Dose 1 MG; Start 08/01/16 at 13:00 Enoxaparin Sodium 30 mg 30 mg DAILY SC Last administered on 08/09/16 08:59; Admin Dose 30 MG; Start 08/03/16 at 09:00 Ciprofloxacin/ Dextrose (Cipro Ivpb) 100 ml @ 100 mls/hr Q12 IVPB Last administered on 08/09/16 08:51; Admin Dose 100 MLS/HR; Start 08/03/16 at 21:00 Hydralazine HCl (Apresoline) 10 mg Q6H PRN IV SBP > 170 Last administered on 14:35; Admin Dose 10 MG; Start 08/04/16 at 17:00 Docusate Sodium (Colace) 100 mg BID PO Last administered on 08/09/16 08:50; Admin Dose 100 MG; Start 08/06/16 at 21:00 Mineral Oil (Mineral Oil) 30 ml BID PRN PO CONSTIPATION Last administered on 18:24; Admin Dose 30 ML; Start 08/06/16 at 17:00 Lisinopril (Zestril) 10 mg DAILY PO ; Start 08/09/16 at 19:00 WILTON ARRIAGA Aug 09, 2016 19:07
[2016-08-09] MEDS ORDERED: ACETAMINOPHEN 325 MG TAB PO PRN (19:30)
[2016-08-09 20:34] VITALS: BP 138/64; RESP 18
[2016-08-09] MEDS: ATORVASTATIN 20 MG TAB PO SCH (20:47)
[2016-08-09] MEDS: LISINOPRIL 10 MG TAB PO SCH (21:10)
--- NOTE | 2016-08-10 04:57 | PN ---
Date/Time of Note Date/Time of Note DATE: 08/09/16 TIME: 11:56 Assessment/Plan Lines/Catheters IV Catheter Type (from Nrs): Saline Lock Reinoso in Place (from Nrs): No Assessment/Plan Chief Complaint/Hosp Course 1. Abdominal pain with CT findings that are suggestive of acute noncomplicated diverticulitis. No surgical intervention required at this time. -antibiotics -supportive care -diet as tolerated -judicious fluids -no surgical intervention required at this time. -dc planning ok from surgical standpoint 2. Dyspnea, improved 3. Obesity. Encourage nutritional optimization and exercise to lose weight and improve her overall health status. 4. Anemia without evidence of acute blood loss. Stable 5. Hypertension. Continue nutrition and medication control and encourage weight loss. Thank you Late entry 08/09 Problems: Subjective 24 Hr Interval Summary No pain. No f/c. No cp/sob. No cough. No sz. No rash. No dysuria. No visual or neuro changes. Exam/Review of Systems Vital Signs Vitals Vital Signs Date Time Temp Pulse Resp B/P Pulse Ox O2 Delivery O2 Flow Rate FiO2 08/09/16 20:34 97.9 103 18 138/64 99 08/08/16 20:05 Room Air Intake and Output 08/09/16 08/09/16 08/10/16 15:00 23:00 07:00 Intake Total 1320 ml Balance 1320 ml Exam Free Text/Dictation GENERAL: Obese. No acute distress, comfortable, pleasant. HEENT: Pupils equal, reactive. No scleral icterus. Mucous membranes are moist. NECK: Supple. No JVD. PULMONARY: Normal respiratory effort. No wheezing. CARDIAC: S1, S2 present. ABDOMEN: Soft, obese, nontender. No rebound, no guarding, not rigid. EXTREMITIES: No edema. VASCULAR: Cap refill less than 2 seconds. NEUROLOGIC: Alert, oriented. Moves all 4 extremities grossly. Results Result Diagram: 08/09/16 0515 08/09/16 0515 DANIELLA DURAN MD Aug 10, 2016 04:57
[2016-08-10] MEDS: metroNIDAZOLE 500 MG/NS (PMX) 100 ML IVPB SCH ×2 (05:29→15:07)
[2016-08-10 07:16] VITALS: BP 130/60; RESP 18
[2016-08-10 07:16] LABS: CALCIUM 8.4 mg/dl (8.4-10.2); CREATININE 0.68 mg/dl (0.44-1.00); POTASSIUM 4.4 mmol/L (3.5-5.1)
[2016-08-10] MEDS: MELOXICAM 15 MG TAB PO SCH (09:51)
[2016-08-10] MEDS: DOCUSATE SODIUM 100 MG CAP PO SCH (09:51)
[2016-08-10] MEDS: CIPROFLOXACIN 200 MG/D5W IVPB 100 ML IVPB SCH (09:57)
[2016-08-10] MEDS: LISINOPRIL 10 MG TAB PO SCH (09:57)
[2016-08-10] MEDS: ENOXAPARIN 30 MG/0.3 ML SYG SC SCH (10:05)
[2016-08-10] MEDS ORDERED: CARV6.2579 PO (16:58)
[2016-08-10] MEDS ORDERED: METR500T PO (16:58)
[2016-08-10] MEDS ORDERED: CIPR500T4 PO (16:58)
[2016-08-10] MEDS ORDERED: LISI10TA2 PO (16:58)
--- NOTE | 2016-08-16 01:36 | DS ---
DATE OF ADMISSION: 08/01/2016 DATE OF DISCHARGE: 08/10/2016 FINAL DIAGNOSES: 1. Acute noncomplicated diverticulitis. 2. Hypertension. 3. Hyperlipidemia. 4. Obesity. HOSPITAL COURSE: The patient is an 86-year-old female who presented to the emergency room with abdo zuri pain, nausea and vomiting. The patient underwent a CT of the abdomen and pelvis and was diagn osed with diverticulitis along the mid sigmoid colon with no pneumoperitoneum or abscesses identifie d. The patient was evaluated by Dr. Taylor in general surgery consultation with recommendation of supportive care and antibiotics with no surgical intervention required at this time. The patient wa s given antibiotics, and the patient subsequently was started on full liquid diet which was graduall y advanced to regular diet. The patient's condition improved. The patient's abdominal pain subside d. The patient was noted to have hypertension. The patient's Coreg was increased, and patient was started on lisinopril. The patient's blood pressure was closely monitored and was better controlled on that management, and patient's overall condition improved, and patient was discharged home. CONDITION ON DISCHARGE: Hemodynamically stable. ACTIVITY: As patient tolerates. DIET: Two gram sodium, low-fat, low-cholesterol diet. MEDICATION ON DISCHARGE: 1. The patient was given prescription for Flagyl and ciprofloxacin for 3 more days. 2. The patient was given prescription for Coreg 12.5 mg p.o. b.i.d. 3. Lisinopril 10 mg p.o. daily. The patient is continued on: 1. Lipitor. 2. Ferrous sulfate. 3. [place] p.r.n. for pain. FOLLOWUP: The patient is instructed to follow up with her primary care physician in 2 weeks. Interdisciplinary plan of care established for this patient. Plan of care was discussed with Dr. Sharon frost. Dictated By: WILTON ARRIAGA RESEARCH EDITOR for TRACY MENENDEZ MD, SR/GLADIS Conf#: [id number] DID#: [id number]
== END 2016-08-10 17:45 | disposition home or self-care (01) | DRG 392 ==
LOC: E/R 23:39 → TEL 08-01 01:55 → MS2 08-04 14:29
PROVIDERS: ADMIT Internal Medicine; ATTEND Internal Medicine
DX: K57.32 Diverticulitis of large intestine without perforation or abscess without bleeding (principal); E87.1 Hypo-osmolality and hyponatremia; D64.9 Anemia, unspecified; E66.01 Morbid (severe) obesity due to excess calories; Z68.31 Body mass index [BMI] 31.0-31.9, adult; I10 Essential (primary) hypertension; E78.00 Pure hypercholesterolemia, unspecified; E78.5 Hyperlipidemia, unspecified; Z90.49 Acquired absence of other specified parts of digestive tract; E87.6 Hypokalemia
CPT/HCPCS: 36415; 71010; 74176; 80048; 80053; 81003; 83690; 85025; 93970; 96374; 96375; 96376; J1940; J0360; J0744; J1650; J2060; J2270; J2405; J2765; J7030

== ENCOUNTER 2016-09-02 07:54 | Emergency (ER) | payer OTHER ==
[~2016-09-02] VITALS: Ht 154.9 cm; Wt 69.5 kg
[~2016-09-02 07:54] MED LIST changes: +CIPR500T4 PO; -HYDR-3670 PO; +LISI10TA2 PO; -MELO-110 PO; +METR500T PO
[2016-09-02 07:59] VITALS: Ht 154.9 cm; Wt 69.5 kg
[2016-09-02] MEDS ORDERED: DEXAMETHASONE 10 MG/ML 1 ML INJ IM ONE (08:30)
[2016-09-02] MEDS ORDERED: DIPHENHYDRAMINE 50 MG CAP PO ONE (08:30)
[2016-09-02] MEDS ORDERED: BEN50 PO (08:37)
--- NOTE | 2016-09-02 08:58 | ERD ---
ER Documentation Chief Complaint Date/Time DATE: 09/02/16 TIME: 08:54 Chief Complaint Complains of swelling of the lips and right earache HPI 86-year-old female brought in by her caretakers complaining of swelling of her lower lips. Patient stated that she accidentally used the soap to rinse her mouth last night. At 3 AM this morning, she woke up with swollen lower lips. Denies shortness of breath. Denies exposure to other new foods or new cleaning products. Denies skin rashes. Patient has a history of hypertension and heart disease, is taking lisinopril, carvedilol, and atorvastatin. ROS All systems reviewed and are negative except as per history of present illness. Medications Home Meds Active Scripts Diphenhydramine Hcl* (Benadryl*) 50 Mg Cap, 50 MG PO Q6H, #15 CAP Prov:MAIA ESPANA EXPANDER MACHINE OPERATOR 09/02/16 Ciprofloxacin Hcl* (Ciprofloxacin Hcl*) 500 Mg Tablet, 500 MG PO BID for 3 Days , #14 TAB Prov:WILTON ARRIAGA 08/10/16 Metronidazole* (Flagyl*) 500 Mg Tablet, 500 MG PO TID for 3 Days, TAB Prov:WILTON ARRIAGA 08/10/16 Lisinopril* (Lisinopril*) 10 Mg Tablet, 10 MG PO DAILY for 30 Days, TAB Prov:WILTON ARRIAGA 08/10/16 Carvedilol* (Carvedilol*) 6.25 Mg Tablet, 12.5 MG PO BID for 30 Days, TAB Prov:WILTON ARRIAGA 08/10/16 Hydrocodone Bit-Acetaminophen (Hydrocodone Bit-APAP) 5-325MG Tablet, 1 TAB PO Q4H Y for PAIN LEVEL 4-7 for 30 Days, TAB Prov:WILTON ARRIAGA 10/24/15 Reported Medications Atorvastatin Calcium* (Atorvastatin Calcium*) 20 Mg Tablet, 20 MG PO QHS, #30 TAB 10/20/15 Ferrous Sulfate (Iron) 325 Mg Capsr, 325 MG PO 10/20/15 Allergies Allergies: Coded Allergies: lisinopril (Verified Allergy, Mild, swelling, 09/02/16) PMhx/Soc History of Surgery: Yes (gall bladder surgery) Anesthesia Reaction: No Hx Neurological Disorder: No Hx Respiratory Disorders: No Hx Cardiac Disorders: No Hx Psychiatric Problems: No Hx Miscellaneous Medical Probl: Yes (HTN) Hx Alcohol Use: No Hx Substance Use: No Hx Tobacco Use: No Physical Exam Vitals Vital Signs Date Time Temp Pulse Resp B/P Pulse Ox O2 Delivery O2 Flow Rate FiO2 09/02/16 07:59 98.0 86 20 150/70 97 Physical Exam General: Well-developed, well-nourished, conscious and coherent, in no distress Skin: Warm and dry without rash, good texture and turgor Head: Normocephalic without evidence of trauma Eyes: Sclera and conjunctivae normal; pupils equal, round, and reactive to light; extraocular movements are intact Mouth/throat: Mucous membranes are moist. Posterior pharynx clear without erythema or exudates. Lower lip swollen. Neck: Supple without meningismus or adenopathy. Carotids are equal. Trachea midline. No bruits or JVD Chest: Normal AP diameter. Good expansion without retractions. Nontender. Lungs are clear to auscultate bilaterally with good tidal volume Heart: Regular rate and rhythm. No murmur, rub, or gallops heard Extremities: Full range of motion. Good strength bilaterally. No clubbing, cyanosis, or edema. Peripheral pulses are intact. Sensation intact Neuro: Alert and oriented 4, GCS 15. Cranial nerves grossly intact. Motor and sensory exams nonfocal. Moves all extremities. Speech clear. Gait normal Results 24 hrs Current Medications Medications (Trade) Dose Ordered Sig/Barbara Route PRN Reason Start Time Stop Time Status Last Admin Dose Admin Diphenhydramine HCl (Benadryl) 50 mg ONCE ONCE PO 09/02/16 08:30 09/02/16 08:31 DC 09/02/16 08:29 Dexamethasone (Decadron) 10 mg ONCE ONCE IM 09/02/16 08:30 09/02/16 08:31 DC 09/02/16 08:29 Procedures/MDM 86-year-old female presented ED with angioedema. She does not have any respiratory distress, I doubt anaphylaxis. Likely cause of angioedema may be due to soap in her mouth last night, or long-term use of lisinopril. Benadryl p.o. and dexamethasone IM given to the patient in the ED. Patient's symptoms improved after medication. Patient is advised to discontinue lisinopril until she follows up with her PCP. Patient appears well, stable for discharge and outpatient management. Medical decision making shared with patient and family. Education provided to patient and family. Patient and family expressed understanding of the plan. Medications on discharge: Benadryl. Follow-up: Primary care provider in 2-3 days or return to ED if worse. Departure Diagnosis: Primary Impression: Angio-edema Encounter type: initial encounter Qualified Code: T78.3XXA - Angio-edema, initial encounter Condition: Stable Patient Instructions: Angioedema [facility] Usted se escoto hecho un examen mdico de control que le indica que no est en lance condicin que requiera tratamiento urgente en el Departamento de Emergencia. Un estudio ms profundo y el tratamiento de messer condicin pueden esperar sin ningn riesgo hasta que usted sea atendida/o en el consultorio de messer mdico o lance cl gunjan. Es responsabilidad suya arreglar lance petros para el seguimiento del ace. MANEJO DE CONDICIONES NO URGENTES EN EL FUTURO 1) Si usted tiene un mdico de atencin primaria: Usted debera llamar a messer mdico de atencin primaria antes de venir al departamento de emergencia. Despus de las horas de consultorio, messer doctor o messer asociado/a est disponible por telfono. El mdico o enfermero de violeta en el servicio telefnico puede asesorarle por nam medio para atender el problema, o ace contrario se puede programar lance petros. 2) Si usted no tiene un mdico de atencin primaria: Llame al mdico o clnica de referencia que aparece abajo padmini las horas de consultorio para hacer lance petros para que le vean. CLINICAS: [facility] 990 [phone] [address] [facility] 914 [phone] [address] [facility] [phone] [facility] [phone] [place] [phone] [facility]. [phone] [address] Additional Instructions: Llame al doctor MAANA y shonda lance PETROS PARA DENTRO DE 2-3 BECERRIL.Dgale a la secretaria que nosotros le instruimos hacer esta petros.Avise o llame si messer condicin se empeora antes de la petros. Regresa aqui si peor o no mejor. MAIA ESPANA. YUSUF Sep 02, 2016 08:58
[2016-09-02 09:15] VITALS: BP 146/76; PULSE 75; RESP 19
== END 2016-09-02 09:20 | disposition home or self-care (01) ==
LOC: FTE 07:54
DX: T78.3XXA Angioneurotic edema, initial encounter (principal); I10 Essential (primary) hypertension; H92.01 Otalgia, right ear
CPT/HCPCS: 96372; J1100

== ENCOUNTER 2018-04-08 15:34 | Emergency (ER) | payer OTHER, BC ==
[~2018-04-08] VITALS: Ht 147.3 cm; Wt 74.9 kg
[~2018-04-08 15:34] MED LIST changes: +BEN50 PO; -HYDR-3498 PO; +HYDR-3601 PO
[2018-04-08 15:38] VITALS: Ht 147.3 cm; Wt 74.9 kg
[2018-04-08] MEDS ORDERED: LISI10TA2 PO (17:18)
[2018-04-08] MEDS ORDERED: ESOM40CA PO (17:19)
[2018-04-08] MEDS ORDERED: DOCU-230 PO (17:19)
--- NOTE | 2018-04-08 19:24 | ERD ---
ER Documentation Chief Complaint Chief Complaint body numbness, weakness, shakiness X 3 days HPI 87-year-old female who presents with transcripter. The patient has had at least 3 days of symptoms where she gets a sour taste in her throat becomes very anxious has entire body numbness and tingling and feels weak. The patient's blood p ressure has been elevated and she has had her blood pressure medication change 3 times in the last several weeks. 2 days ago they went to [facility] for similar symptoms and had a workup that was negative and was discharged. When the transcripter is very concerned the patient continues to have these episodes. There is no focal deficit no fevers or chills. 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 During the patient's encounter translation services were utilized Language: Occitan Source: In person ROS All systems reviewed and are negative except as per history of present illness. Medications Home Meds Reported Medications Docusate Sodium* (Stool Softener*) 100 Mg Capsule, 100 MG PO DAILY, CAP 04/08/18 Esomeprazole Mag Trihydrate (Nexium) 40 Mg Capsule.dr, 40 MG PO DAILY, #30 CAP 04/08/18 Lisinopril* (Lisinopril*) 10 Mg Tablet, 10 MG PO DAILY, #30 TAB 04/08/18 Discontinued Reported Medications Atorvastatin Calcium* (Atorvastatin Calcium*) 20 Mg Tablet, 20 MG PO QHS, #30 TAB 10/20/15 Ferrous Sulfate (Iron) 325 Mg Capsr, 325 MG PO 10/20/15 Discontinued Scripts Diphenhydramine Hcl* (Benadryl*) 50 Mg Cap, 50 MG PO Q6H, #15 CAP Prov:MAIA ESPANA ROTARY DRIER OPERATOR 09/02/16 Ciprofloxacin Hcl* (Ciprofloxacin Hcl*) 500 Mg Tablet, 500 MG PO BID for 3 Days, #14 TAB Prov:WILTON ARRIAGA 08/10/16 Metronidazole* (Flagyl*) 500 Mg Tablet, 500 MG PO TID for 3 Days, TAB Prov:WILTON ARRIAGA 08/10/16 Lisinopril* (Lisinopril*) 10 Mg Tablet, 10 MG PO DAILY for 30 Days, TAB Prov:WILTON ARRIAGA 6/6/17 Carvedilol* (Carvedilol*) 6.25 Mg Tablet, 12.5 MG PO BID for 30 Days, TAB Prov:ROSAURA ARRIAGAA 08/10/16 Hydrocodone Bit-Acetaminophen (Hydrocodone Bit-APAP) 5-325MG Tablet, 1 TAB PO Q4H PRN for PAIN LEVEL 4-7 for 30 Days, TAB Prov:WILTON ARRIAGA 10/24/15 Allergies Allergies: Coded Allergies: No Known Allergy (Unverified , 04/08/18) PMhx/Soc History of Surgery: Yes (gall bladder surgery) Anesthesia Reaction: No Hx Neurological Disorder: No Hx Respiratory Disorders: No Hx Cardiac Disorders: Yes (HTN ) Hx Psychiatric Problems: No Hx Miscellaneous Medical Probl: Yes (ARTHRITIS , GASTRITIS ) Hx Alcohol Use: No Hx Substance Use: No Hx Tobacco Use: No Smoking Status: Never smoker FmHx Family History: No diabetes Physical Exam Vitals Vital Signs Date Temp Pulse Resp B/P (MAP) Pulse Ox O2 O2 Flow FiO2 Time Delivery Rate 04/08/18 84 16 181/82 96 Room Air 18:46 (115) 04/08/18 83 18 178/80 97 Room Air 18:15 (112) 04/08/18 78 18 173/77 98 Room Air 17:18 (109) 04/08/18 75 18 162/75 98 Room Air 16:14 (104) 04/08/18 98.2 76 18 162/74 97 15:38 (103) Physical Exam General: Anxious but no acute distress Head: Normocephalic, atraumatic. Eyes: Pupils equally reactive, EOM intact ENT: Moist mucous membranes Neck: Supple, no lymphadenopathy Respiratory: Lungs clear bilaterally, no distress Cardiovascular: RRR, no murmurs, rubs, or gallops Abdominal: Soft, non-tender, non-distended, no peritoneal signs : Deferred MSK: No edema, no unilateral swelling, 5/5 strength Neurologic: Alert and oriented, moving all extremities, normal speech, no focal weakness, no cerebellar signs Skin: No rash Psych: Anxious mood Result Diagram: 04/08/18 1641 04/08/18 1641 Results 24 hrs Laboratory Tests Test 04/08/18 16:41 04/08/18 17:00 White Blood Count 7.1 10^3/ul Red Blood Count 3.87 10^6/ul Hemoglobin 11.7 g/dl Hematocrit 35.2 % Mean Corpuscular Volume 91.0 fl Mean Corpuscular Hemoglobin 30.2 pg Mean Corpuscular Hemoglobin Concent 33.2 g/dl Red Cell Distribution Width 12.9 % Platelet Count 169 10^3/UL Mean Platelet Volume 9.2 fl Immature Granulocytes % 0.100 % Neutrophils % 39.0 % Lymphocytes % 50.1 % Monocytes % 9.2 % Eosinophils % 1.3 % Basophils % 0.3 % Nucleated Red Blood Cells % 0.0 /100WBC Immature Granulocytes # 0.010 10^3/ul Neutrophils # 2.8 10^3/ul Lymphocytes # 3.5 10^3/ul Monocytes # 0.7 10^3/ul Eosinophils # 0.1 10^3/ul Basophils # 0.0 10^3/ul Nucleated Red Blood Cells # 0.0 10^3/ul Sodium Level 138 mmol/L Potassium Level 4.6 mmol/L Chloride Level 102 mmol/L Carbon Dioxide Level 28 mmol/L Anion Gap 8 Blood Urea Nitrogen 16 mg/dl Creatinine 0.83 mg/dl Est Glomerular Filtrat Rate mL/min mL/min Glucose Level 110 mg/dl Calcium Level 9.8 mg/dl Total Bilirubin 0.2 mg/dl Direct Bilirubin 0.00 mg/dl Indirect Bilirubin 0.2 mg/dl Aspartate Amino Transf (AST/SGOT) 31 IU/L Alanine Aminotransferase (ALT/SGPT) 14 IU/L Alkaline Phosphatase 106 IU/L Troponin I < 0.012 ng/ml Total Protein 7.7 g/dl Albumin 4.3 g/dl Globulin 3.40 g/dl Albumin/Globulin Ratio 1.26 Urine Color COLORLESS Urine Clarity CLEAR Urine pH 7.0 Urine Specific [place] 1.002 Urine Ketones NEGATIVE mg/dL Urine Nitrite NEGATIVE mg/dL Urine Bilirubin NEGATIVE mg/dL Urine Urobilinogen NEGATIVE mg/dL Urine Leukocyte Esterase NEGATIVE Raul/ul Urine Hemoglobin NEGATIVE mg/dL Urine Glucose NEGATIVE mg/dL Urine Total Protein NEGATIVE mg/dl Procedures/MDM EKG, MONITORS, & DIAGNOSTIC IMAGING: EKG: I reviewed and interpreted a 12-lead EKG. Rhythm: Normal sinus rhythm ST Changes: No contiguous ST segment elevations T waves: No contiguous T wave inversions Impression: No evidence of acute cardiac ischemia Chest x-ray: I reviewed and interpreted a 1 view of the chest Mediastinum: No enlargement Cardiac silhouette: No cardiomegaly Airspace: Clear lung stevens bilaterally without evidence of pneumothorax Bones: No evidence of fracture CT brain IMPRESSION: Atrophy. White matter disease compatible with chronic small vessel ischemia. No intracranial hemorrhage, mass or evidence of acute transcortical infarct. LAB INTERPRETATION: * No evidence of infection or severe anemia * Chemistry is unremarkable including no electrolyte disturbance and negative troponin, urinalysis not consistent with UTI MEDICAL DECISION MAKING: The patient presents with nonspecific symptoms that in the end I believe are consistent with likely anxiety versus worsening dementia. The patient has had a thorough emergency room workup just 2 days ago for similar symptoms and was discharged. Patient's blood pressure is slightly elevated but at this time no signs or symptoms concerning for endorgan dysfunction. This is likely secondary to stress response. I had a prolonged conversation with the patient and transcripter. They are extremely anxious together about this process. I explained to them that we will evaluate the patient for endorgan dysfunction or serious etiology but this may be something that needs to be followed up by a primary care physician. The patient is now seeing multiple different physicians and multiple different emergency rooms and blood pressure medications are being changed. This is not in the patient's best interest and the patient is at risk for polypharmacy. I do not wish to alter the patient's medication regimen at this time given the frequency of changes in the last week. ER COURSE: * The patient's blood pressure continues to have her in the 1 6180 range but she is resting comfortably and asymptomatic. No indication for rapidly lowering. * Laboratory testing and diagnostic imaging are ultimately unrevealing. The patient can be safely discharged with close primary care follow-up. CONSULTATION: None DISPOSITION PLAN: The patient does not have an identifiable emergent medical condition that warrants inpatient hospitalization at this time. The patient is deemed safe for discharge with outpatient follow-up. We discussed follow up with the patient's primary care doctor within 24 to 48 hours as needed. We also discussed return to the emergency room for worsening symptoms or worsening condition. Outpatient referral: None required Discharge Medications: None required Departure Diagnosis: Primary Impression: Paresthesia Additional Impressions: Hypertensive urgency Anxiety reaction Condition: Stable Patient Instructions: Paraesthesias Referrals: [facility] Usted se escoto hecho un examen mdico de control que le indica que no est en lance condicin que requiera tratamiento urgente en el Departamento de Emergencia. Un estudio ms profundo y el tratamiento de messer condicin pueden esperar sin ningn riesgo hasta que usted sea atendida/o en el consultorio de messer mdico o lance clnica. Es responsabilidad suya arreglar lance petros para el seguimiento del ace. MANEJO DE CONDICIONES NO URGENTES EN EL FUTURO 1) Si usted tiene un mdico de atencin primaria: Usted debera llamar a messer mdico de atencin primaria antes de venir al departamento de emergencia. Despus de las horas de consultorio, messer doctor o messer asociado/a est disponible por telfono. El mdico o enfermero de violeta en el servicio telefnico puede asesorarle por nam medio para atender el problema, o ace contrario se puede programar lance petros. 2) Si usted no tiene un mdico de atencin primaria: Llame al mdico o clnica de referencia que aparece abajo padmini las horas de consultorio para hacer lance petros para que le vean. CLINICAS: [facility] [phone] [address] [facility] [phone] [facility] [phone] [address] [facility] [place] [phone] [address] [facility] [facility] [place] [phone] [address] [facility]. [phone] [facility] () Usted se escoto hecho un examen mdico de control que le indica que no est en lance condicin que requiera tratamiento urgente en el Departamento de Emergencia. Un estudio ms profundo y el tratamiento de messer condicin pueden esperar sin ningn riesgo hasta que usted sea atendida/o en el consultorio de messer mdico o lance clnica. Es responsabilidad suya arreglar lance petros para el seguimiento del ace. MANEJO DE CONDICIONES NO URGENTES EN EL FUTURO 1) Si usted tiene un mdico de atencin primaria: Usted debera llamar a messer mdico de atencin primaria antes de venir al departamento de emergencia. Despus de las horas de consultorio, messer doctor o messer asociado/a est disponible por telfono. El mdico o enfermero de violeta en el servicio telefnico puede asesorarle por nam medio para atender el problema, o ace contrario se puede programar lance petros. 2) Si usted no tiene un mdico de atencin primaria: Llame al mdico o condado institucions de referencia que aparece abajo padmini las horas de consultorio para hacer lance petros para que le vean. SI USTED NO PUEDE PAGAR PARA THOMPSON UN MEDICO puede ir a: [facility] [address] [place] [address] [facility] [address] [place] [address] [facility] [address] [place] [address] [facility] [facility] [address] [place], [place] [phone] Additional Instructions: Llame al doctor nombrado abajo (Referral Sources) MAANA y shonda lance PETROS PARA DENTRO DE LANCE SEMANA. Dgale a la secretaria que nosotros le instruimos hacer esta petros.Avise o llame si messer condicin se empeora antes de la petros. NICOLE GRAY MD Apr 08, 2018 19:24
[2018-04-08 19:49] VITALS: BP 184/76; PULSE 89; RESP 18
== END 2018-04-08 19:49 | disposition home or self-care (01) ==
LOC: E/R 15:34
DX: I16.0 Hypertensive urgency (principal); F41.1 Generalized anxiety disorder; R20.2 Paresthesia of skin; R40.2142 Coma scale, eyes open, spontaneous, at arrival to emergency department; R40.2252 Coma scale, best verbal response, oriented, at arrival to emergency department; R40.2362 Coma scale, best motor response, obeys commands, at arrival to emergency department; I10 Essential (primary) hypertension
CPT/HCPCS: 36415; 70450; 71045; 80053; 81003; 84484; 85025; 93005